=== PATIENT | male | born 1950 | race Caucasian/White ===

== ENCOUNTER 2016-08-05 00:10 | Emergency (ER) | payer MEDICARE, BC ==
[2016-08-05 00:18] VITALS: BP 130/89
[2016-08-05] MEDS ORDERED: HYDROmorphone 1 MG/ML Syringe IVPUSH ONE (01:06)
[2016-08-05] MEDS ORDERED: Ondansetron 4 MG/2 ML SDV IVPUSH ONE (01:06)
[2016-08-05] MEDS ORDERED: Sodium Chloride 0.9% 1,000 ML IV SCH (01:15)
--- NOTE | 2016-08-05 03:10 | EDM.PDOC ---
ED HPI GI/ABDOMINAL - General Chief Complaint: Abdominal Pain Stated Complaint: VOMITING/ABDOMINAL PAIN Time Seen by Provider: 08/05/16 00:35 Source of Information: Reports: Patient, RN notes reviewed History Limitations: Reports: No limitations - History of Present Illness INITIAL COMMENTS - FREE TEXT/NARRATIVE: The patient states that he developed central abdominal pain about 45 minutes [employer] , along with nausea and vomiting. He is unable to describe the character of his abdominal pain. It does not radiate. It is not modifiable. No recent fever, constipation, diarrhea, or urinary symptoms. He states that he had similar symptoms Thursday night, 07/29/2016. He states that he had a speck of blood in his vomitus. His symptoms resolved on their own. On further questioning, the patient has had similar abdominal pain, in the same location, although less intense, for approximately 5 years. He has had extensive workups, including EGDs, colonoscopies, CT scans, and MRIs, all of which were negative. He does not recall when the last CT scan of his abdomen was. The patient is on morphine 60 mg po BID and [place] 10/325 1-2 tabs po Q6h for chronic pain. - Related Data Allergies/ADRs: Allergies Allergy/AdvReac Type Severity Reaction Status Date / Time eszopiclone [From Lunesta] Allergy Rash Verified 08/05/16 00:18 tramadol HCl [From Ultram] Allergy Rash Verified 08/05/16 00:18 zolpidem tartrate Allergy Rash Verified 08/05/16 00:18 [From Ambien] Home Meds: Home Meds Hydrocodone/Acetaminophen [Hydrocodon-Acetaminophn 10-325] 1 - 2 tab PO Q6H PRN 09/28/13 [History] Morphine Sulfate [Morphine Sulfate ER] 60 mg PO BID 11/22/15 [History] Pantoprazole Sodium [Protonix] 40 mg PO DAILY 08/05/16 [History] Past Medical History HEENT History: Reports: Allergic rhinitis Other HEENT History: glasses, dentures Other Musculoskeletal History: crushing injury of finger, rheumatoid arthritis, chronic left shoulder pain, right knee pain Psychiatric History: Reports: Mood swings Other Psychiatric History: pysciatric disorder - Past Surgical History HEENT Surgical History: Reports: Tonsillectomy GI Surgical History: Reports: Cholecystectomy, Colonoscopy, EGD, Hernia, inguinal (right) Neurological Surgical History: Reports: C-Spine (ACDF), Other (see below) (Left elbow ulnar nerve transposition) Musculoskeletal Surgical History: Reports: Shoulder surgery (bilateral, arthroscopic, x 3), Other (see below) (Right hand amputation) Dermatological Surgical History: Reports: Other (see below) (Pilonidal cystectomy) Social & Family History - Family History Family Medical History: Noncontributory - Tobacco Use Smoking Status *Q: Former Smoker Tobacco Use Within Last Twelve Months: Cigarettes Years of Tobacco use: 45 Packs/Tins Daily: 2 Used Tobacco, but Quit: Yes Month Tobacco Last Used: 04/20/2016 Second Hand Smoke Exposure: No - Caffeine Use Caffeine Use: Reports: Coffee - Alcohol Use Alcohol Use History: No Days Per Week of Alcohol Use: 0 - Recreational Drug Use Recreational Drug Use: No - Living Situation & Occupation Living situation: Reports: , with spouse Occupation: employed ([employer]) ED ROS GENERAL - Review of Systems Review Of Systems: See Below Constitutional: Reports: no symptoms HEENT: Reports: No symptoms Respiratory: Reports: No Symptoms Cardiovascular: Reports: No symptoms Endocrine: Reports: no symptoms GI/Abdominal: Reports: Abdominal pain (as per the HPI) : Reports: no symptoms Musculoskeletal: Reports: no symptoms Skin: Reports: no symptoms Neurological: Reports: No Symptoms Psychiatric: Reports: No symptoms Hematologic/Lymphatic: Reports: no symptoms Immunologic: Reports: no symptoms ED EXAM, GI/ABD - Physical Exam Exam: See Below Exam Limited By: Other (Reluctant to cooperate) General Appearance: alert, WD/WN, mild distress Eyes: bilateral: EOMI Ears: normal external exam, hearing grossly normal Nose: normal inspection, no blood Throat/Mouth: Normal inspection, Normal lips, Normal voice, No airway compromise Head: atraumatic, normocephalic Neck: normal inspection, full range of motion Respiratory/Chest: no respiratory distress, lungs clear, normal breath sounds, no accessory muscle use Cardiovascular: normal peripheral pulses, regular rate, rhythm, no edema, no gallop, no JVD, no murmur, no rub GI/Abdominal: normal bowel sounds, no abnormal bruit, other (Examination limited , as the patient will not relax his abdominal muscles) (Male) Exam: Deferred Rectal (Males) Exam: Deferred Back Exam: normal inspection, full range of motion. No: CVA tenderness (L), CVA tenderness (R) Extremities: normal inspection, normal range of motion, no pedal edema, normal capillary refill Neurological: alert, oriented, normal cognition, no motor/sensory deficits Psychiatric: normal affect, flat affect Skin Exam: Warm, Dry, Intact, Normal color, No rash Course - Vital Signs Last Recorded V/S: Last Vital Signs Temp 36.3 C 08/05/16 00:15 Pulse 91 08/05/16 00:15 Resp 16 08/05/16 00:15 BP 130/89 08/05/16 00:15 Pulse Ox 95 08/05/16 00:15 - Orders/Labs/Meds Orders: Active Orders 24 hr Category Date Time Status Abdomen Pelvis w Cont [CT] Stat Exams 08/05/16 01:06 Taken Sodium Chloride 0.9% [Normal Saline] 1,000 ml Med 08/05/16 01:15 Active IV ASDIRECTED Medication Orders Sodium Chloride (Normal Saline) 1,000 mls @ 150 mls/hr IV ASDIRECTED BRINDA Last Admin: 08/05/16 01:21 Dose: 150 mls/hr Labs: Laboratory Tests 08/05/16 08/05/16 08/05/16 Range/Units 00:45 00:45 03:14 WBC 9.46 H (4.23-9.07) K/mm3 RBC 4.72 (4.63-6.08) M/mm3 Hgb 15.1 (13.7-17.5) gm/L Hct 44.8 (40.1-51.0) % MCV 94.9 H (79.0-92.2) fl MCH 32.0 (25.7-32.2) pg MCHC 33.7 (32.2-35.5) g/dl RDW Std Deviation 44.1 H (35.1-43.9) fL Plt Count 299 (163-337) K/mm3 MPV 9.5 (9.4-12.3) fl Neutrophils % (Manual) 58 (40-60) % Band Neutrophils % 1 (0-10) % Lymphocytes % (Manual) 32 (20-40) % Atypical Lymphs % 0 % Monocytes % (Manual) 6 (2-10) % Eosinophils % (Manual) 3 (0.8-7.0) % Basophils % (Manual) 0 L (0.2-1.2) Platelet Estimate Adequate Plt Morphology Comment Normal RBC Morph Comment Normal Sodium 143 (136-145) mEq/L Potassium 3.4 L (3.5-5.1) mEq/L Chloride 105 (98-107) mEq/L Carbon Dioxide 26 (21-32) mEq/L Anion Gap 15.4 H (5-15) BUN 15 (7-18) mg/dL Creatinine 0.8 (0.7-1.3) mg/dL Est Cr Clr Drug Dosing 84.28 mL/min Estimated GFR (MDRD) > 60 (>60) mL/min BUN/Creatinine Ratio 18.8 H (14-18) Glucose 96 (80-115) mg/dL Calcium 9.1 (8.5-10.1) mg/dL Total Bilirubin 0.5 (0.2-1.0) mg/dL AST 17 (15-37) U/L ALT 17 (16-63) U/L Alkaline Phosphatase 85 (46-116) U/L Total Protein 7.4 (6.4-8.2) g/dl Albumin 4.1 (3.4-5.0) g/dl Globulin 3.3 gm/dL Albumin/Globulin Ratio 1.2 (1-2) Lipase 79 (73-393) U/L Urine Color Yellow (Yellow) Urine Appearance Clear (Clear) Urine pH 6.0 (5.0-8.0) Ur Specific [place] 1.010 (1.005-1.030) Urine Protein Negative (Negative) Urine Glucose (UA) Negative (Negative) Urine Ketones Negative (Negative) Urine Occult Blood Negative (Negative) Urine Nitrite Negative (Negative) Urine Bilirubin Negative (Negative) Urine Urobilinogen 0.2 (0.2-1.0) Ur Leukocyte Esterase Negative (Negative) Urine RBC 0-5 (0-5) /hpf Urine WBC 0-5 (0-5) /hpf Ur Epithelial Cells Not seen (0-5) /hpf Urine Bacteria Rare (FEW) /hpf Urine Mucus Not seen (FEW) /hpf Meds: Medications Generic Name Dose Route Start Last Admin Trade Name Freq PRN Reason Stop Dose Admin Sodium Chloride 1,000 mls @ 150 mls/hr 08/05/16 01:15 08/05/16 01:21 Normal Saline IV 150 mls/hr ASDIRECTED BRINDA Administration Discontinued Medications Generic Name Dose Route Start Last Admin Trade Name [place] PRN Reason Stop Dose Admin Hydromorphone HCl 1 mg 08/05/16 01:06 08/05/16 01:23 Dilaudid IVPUSH 08/05/16 01:07 1 mg ONETIME ONE Administration Ondansetron HCl 4 mg 08/05/16 01:06 08/05/16 01:21 Zofran IVPUSH 08/05/16 01:07 4 mg ONETIME ONE Administration - Radiology Interpretation Free Text/Narrative:: CT of the abdomen and pelvis with oral and IV contrast is read by [facility] as "No acute findings." - Re-Assessments/Exams Free Text/Narrative Re-Assessment/Exam: 08/05/16 03:52 Test results discussed with the patient and his . Today's workup is entirely unremarkable, and does not explain the cause of the patient's pain. This did not appear to surprise the patient - he stated "I know" even before I was able to tell him his test results. He requested additional pain medication , however, with a negative workup, and the patient having pain medication at home, I do not see an indication for additional pain medication here. Departure - Departure Time of Disposition: 03:55 Disposition: Home, Self-Care 01 Condition: good Clinical Impression: Chronic generalized abdominal pain Instructions: Abdominal Pain, Adult Referrals: Imelda Mcmahan DO [Primary Care Provider] - Forms: ED Department Discharge Additional Instructions: You were seen in the emergency room for recurrent abdominal pain, along with nausea and vomiting. Workup in the ER included blood work, a urinalysis, and a CT scan of your abdomen and pelvis. Your entire workup was unremarkable, and does not explain the cause of your symptoms. We recommend you continue to take your usual medications as prescribed. Followup at your gastroenterology clinic at the next available appointment. If any other problems, please do not hesitate to return to the ER. - My Orders Last 24 Hours: My Active Orders 08/05/16 01:06 Abdomen Pelvis w Cont [CT] Stat 08/05/16 01:15 Sodium Chloride 0.9% [Normal Saline] 1,000 ml IV ASDIRECTED - Assessment/Plan Last 24 Hours: My Active Orders 08/05/16 01:06 Abdomen Pelvis w Cont [CT] Stat 08/05/16 01:15 Sodium Chloride 0.9% [Normal Saline] 1,000 ml IV ASDIRECTED
--- NOTE | 2016-08-05 08:53 | CT ---
CT abdomen and pelvis Technique: Multiple axial sections were obtained through the abdomen and pelvis. Intravenous and oral contrast was utilized. Delayed images were also obtained through the abdomen and pelvis. Comparison: Previous CT abdomen and pelvis exam of 09/16/10. Findings: Visualized lung bases show nothing acute. Small low density lesion is identified within the left lobe of the liver. This finding measures approximately 1.0 cm in size. This is noted on prior CT exam at which time it measured 1.0 cm in size. This is felt compatible with an incidental cyst. No additional abnormality is identified within the liver. Surgical clips seen from prior cholecystectomy. Adrenal glands show no nodule. Kidneys show symmetric contrast enhancement without hydronephrosis or mass. Pancreas is within normal limits. Aorta and iliac vessels show atherosclerotic calcification without aneurysmal dilatation. Appendix is seen which appears normal. No pelvic mass or adenopathy is seen. Delayed images show contrast throughout the ureters and within the bladder. No bowel dilatation is seen. No bowel wall thickening is identified. No free fluid or inflammatory change is seen. Bone window settings were reviewed which show scattered degenerative endplate spurring throughout the spine as well as degenerative apophyseal change. Impression: 1. Incidental findings as described above. 2. No acute abnormality is identified on CT study of the abdomen and pelvis. Agree with preliminary report issued by [employer] (preliminary report dictated 4:00 a.m. Central Time on 08/05/16) Diagnostic code #2
== END 2016-08-05 04:20 | disposition home or self-care (01) ==
LOC: JD.ED 00:10
DX: R10.84 Generalized abdominal pain (principal); G89.29 Other chronic pain; Z98.890 Other specified postprocedural states; Z90.49 Acquired absence of other specified parts of digestive tract; Z79.899 Other long term (current) drug therapy; Z87.891 Personal history of nicotine dependence; Z88.5 Allergy status to narcotic agent; Z88.8 Allergy status to other drugs, medicaments and biological substances
CPT/HCPCS: 36415; 74177; 80053; 81001; 83690; 85025; 96361; 96374; 96375; 99284; J1170; J2405; J7040

== ENCOUNTER 2016-08-27 19:37 | Emergency (ER) | payer MEDICARE, BC ==
[2016-08-27 19:56] VITALS: BP 128/77
[2016-08-27] MEDS ORDERED: Sodium Chloride 0.9% 1,000 ML IV ONE (20:50)
[2016-08-27] MEDS ORDERED: Ondansetron 4 MG/2 ML SDV IVPUSH ONE (20:50)
[2016-08-27] MEDS ORDERED: HYDROmorphone 1 MG/ML Syringe IVPUSH ONE (20:50)
[2016-08-27] MEDS ORDERED: Sodium Chloride 0.9% 10 ML Syringe FLUSH PRN (20:50)
--- NOTE | 2016-08-27 21:02 | EDM.PDOC ---
ED HPI GENERAL MEDICAL PROBLEM - General Chief Complaint: Abdominal Pain Stated Complaint: LOWER ABDOMINAL PAIN Time Seen by Provider: 08/27/16 20:32 Source of Information: Reports: Patient, Old records (previous ER visits ) History Limitations: Reports: No Limitations - History of Present Illness INITIAL COMMENTS - FREE TEXT/NARRATIVE: 66-year-old male presents for evaluation and treatment of abdominal pain. Reports of the abdominal pain is generalized in nature. States it started around 6 PM this evening. Reports associated symptoms of nausea and vomiting. Patient reports that his abdomen is very tender to touch. He states he has had this problem on going for about 5 years. He's currently on morphine and oxycodone for pain relief. He did take a half of a pain pill prior to arrival in the ER but did not find any pain relief. Reports that his last bowel movement was today. No melena, hematochezia, dysuria, hematuria, change in urine odor color, fevers or chills. Patient has had multiple imaging studies, EGD and colonoscopy. Has seen ALONA Stevenson. No etiology for his abdominal pain has been found. He states over the last 5 years she has lost about 70 or 80 pounds due to the pain. Location: Reports: abdomen Abdomen Pain Score (Numeric/FACES): 10 - Related Data Allergies Allergy/AdvReac Type Severity Reaction Status Date / Time eszopiclone [From Lunesta] Allergy Rash Verified 08/27/16 19:56 tramadol HCl [From Ultram] Allergy Rash Verified 08/27/16 19:56 zolpidem tartrate Allergy Rash Verified 08/27/16 19:56 [From Ambien] Home Meds: Home Meds Hydrocodone/Acetaminophen [Hydrocodon-Acetaminophn 10-325] 1 - 2 tab PO Q6H PRN 09/28/13 [History] Morphine Sulfate [Morphine Sulfate ER] 60 mg PO BID 11/22/15 [History] Pantoprazole Sodium [Protonix] 40 mg PO DAILY 08/05/16 [History] Past Medical History HEENT History: Reports: Allergic rhinitis Other HEENT History: glasses, dentures Gastrointestinal History: Reports: Hiatal hernia Other Gastrointestinal History: RLQ pain, weight loss, gastric ulcer Other Musculoskeletal History: crushing injury of finger, rheumatoid arthritis, chronic left shoulder pain, right knee pain Psychiatric History: Reports: Mood swings Other Psychiatric History: pysciatric disorder Other Hematologic History: bone marrow aspiration and biopsy - Past Surgical History HEENT Surgical History: Reports: Tonsillectomy GI Surgical History: Reports: Cholecystectomy, Colonoscopy, EGD, Hernia, inguinal Neurological Surgical History: Reports: C-Spine, Other (see below) Other Neurological Surgeries/Procedures: fusions from c2 to c6 Musculoskeletal Surgical History: Reports: Shoulder surgery Social & Family History - Family History Family Medical History: Noncontributory - Tobacco Use Smoking Status *Q: Current Some Day Smoker Years of Tobacco use: 40 Packs/Tins Daily: 0.2 Used Tobacco, but Quit: Yes Month Tobacco Last Used: 04/20/2016 Second Hand Smoke Exposure: No - Caffeine Use Caffeine Use: Reports: Coffee - Alcohol Use Days Per Week of Alcohol Use: 0 - Recreational Drug Use Recreational Drug Use: No Drug Use in Last 12 Months: No - Living Situation & Occupation Living situation: Reports: , with spouse Occupation: employed ([employer]) ED ROS GENERAL - Review of Systems Review Of Systems: See Below Constitutional: Reports: Decreased Appetite, Weight Loss. Denies: Fever, Chills GI/Abdominal: Reports: Abdominal Pain (generalized), Nausea, Vomiting. Denies: Constipation, Diarrhea, Hematochezia, Melena : Reports: No Symptoms. Denies: Dysuria, Flank Pain, Hematuria ED EXAM, GI/ABD - Physical Exam Exam: See Below Exam Limited By: No Limitations General Appearance: alert, WD/WN, mild distress Throat/Mouth: Normal Inspection, Normal Voice, No Airway Compromise Respiratory/Chest: No Respiratory Distress, Lungs Clear, Normal Breath Sounds Cardiovascular: Normal Peripheral Pulses, Regular Rate, Rhythm, No Murmur GI/Abdominal: Normal Bowel Sounds, Tenderness (generalized), Guarding Neurological: Alert, Oriented, Normal Cognition Psychiatric: Normal Affect, Normal Mood Skin Exam: Warm, Dry, Normal Color Course - Vital Signs Last Recorded V/S: Last Vital Signs Temp 37.0 C 08/27/16 19:46 Pulse 73 08/27/16 19:46 Resp 20 08/27/16 19:46 BP 128/77 08/27/16 19:46 Pulse Ox 95 08/27/16 19:46 - Orders/Labs/Meds Orders: Active Orders 24 hr Category Date Time Status Peripheral IV Care [RC] . DIRECTED Care 08/27/16 20:50 Active Peripheral IV Insertion Adult [OM.PC] Routine Oth 08/27/16 20:50 Ordered Labs: Laboratory Tests 08/27/16 08/27/16 08/27/16 Range/Units 20:10 20:10 20:10 WBC 12.96 H (4.23-9.07) K/mm3 RBC 4.60 L (4.63-6.08) M/mm3 Hgb 14.9 (13.7-17.5) gm/L Hct 44.3 (40.1-51.0) % MCV 96.3 H (79.0-92.2) fl MCH 32.4 H (25.7-32.2) pg MCHC 33.6 (32.2-35.5) g/dl RDW Std Deviation 45.9 H (35.1-43.9) fL Plt Count 296 (163-337) K/mm3 MPV 9.5 (9.4-12.3) fl Neut % (Auto) 80.0 H (34.0-67.9) % Lymph % (Auto) 12.2 L (21.8-53.1) % [place] % (Auto) 7.2 (5.3-12.2) % Eos % (Auto) 0.2 L (0.8-7.0) Baso % (Auto) 0.2 (0.1-1.2) % Neut # (Auto) 10.36 H (1.78-5.38) K/mm3 Lymph # (Auto) 1.58 (1.32-3.57) K/mm3 [place] # (Auto) 0.93 H (0.30-0.82) K/mm3 Eos # (Auto) 0.03 L (0.04-0.54) K/mm3 Baso # (Auto) 0.03 (0.01-0.08) K/mm3 PT 11.1 (8.0-13.0) SECONDS INR 1.02 APTT 26 (22-36) SECONDS Sodium 142 (136-145) mEq/L Potassium 3.8 (3.5-5.1) mEq/L Chloride 106 (98-107) mEq/L Carbon Dioxide 30 (21-32) mEq/L Anion Gap 9.8 (5-15) BUN 9 (7-18) mg/dL Creatinine 0.8 (0.7-1.3) mg/dL Est Cr Clr Drug Dosing 83.79 mL/min Estimated GFR (MDRD) > 60 (>60) mL/min BUN/Creatinine Ratio 11.3 L (14-18) Glucose 92 (80-115) mg/dL Calcium 9.0 (8.5-10.1) mg/dL Total Bilirubin 0.2 (0.2-1.0) mg/dL AST 19 (15-37) U/L ALT 18 (16-63) U/L Alkaline Phosphatase 96 (46-116) U/L C-Reactive Protein < 0.2 (<1.0) mg/dL Total Protein 7.5 (6.4-8.2) g/dl Albumin 4.0 (3.4-5.0) g/dl Globulin 3.5 gm/dL Albumin/Globulin Ratio 1.1 (1-2) Lipase 105 (73-393) U/L Urine Color (Yellow) Urine Appearance (Clear) Urine pH (5.0-8.0) Ur Specific [place] (1.005-1.030) Urine Protein (Negative) Urine Glucose (UA) (Negative) Urine Ketones (Negative) Urine Occult Blood (Negative) Urine Nitrite (Negative) Urine Bilirubin (Negative) Urine Urobilinogen (0.2-1.0) Ur Leukocyte Esterase (Negative) Urine RBC (0-5) /hpf Urine WBC (0-5) /hpf Ur Epithelial Cells Ur Squamous Epith Cells (0-5) /hpf Urine Bacteria (FEW) /hpf Urine Mucus (FEW) /hpf 08/27/16 Range/Units 21:45 WBC (4.23-9.07) K/mm3 RBC (4.63-6.08) M/mm3 Hgb (13.7-17.5) gm/L Hct (40.1-51.0) % MCV (79.0-92.2) fl MCH (25.7-32.2) pg MCHC (32.2-35.5) g/dl RDW Std Deviation (35.1-43.9) fL Plt Count (163-337) K/mm3 MPV (9.4-12.3) fl Neut % (Auto) (34.0-67.9) % Lymph % (Auto) (21.8-53.1) % [place] % (Auto) (5.3-12.2) % Eos % (Auto) (0.8-7.0) Baso % (Auto) (0.1-1.2) % Neut # (Auto) (1.78-5.38) K/mm3 Lymph # (Auto) (1.32-3.57) K/mm3 [place] # (Auto) (0.30-0.82) K/mm3 Eos # (Auto) (0.04-0.54) K/mm3 Baso # (Auto) (0.01-0.08) K/mm3 PT (8.0-13.0) SECONDS INR APTT (22-36) SECONDS Sodium (136-145) mEq/L Potassium (3.5-5.1) mEq/L Chloride (98-107) mEq/L Carbon Dioxide (21-32) mEq/L Anion Gap (5-15) BUN (7-18) mg/dL Creatinine (0.7-1.3) mg/dL Est Cr Clr Drug Dosing mL/min Estimated GFR (MDRD) (>60) mL/min BUN/Creatinine Ratio (14-18) Glucose (80-115) mg/dL Calcium (8.5-10.1) mg/dL Total Bilirubin (0.2-1.0) mg/dL AST (15-37) U/L ALT (16-63) U/L Alkaline Phosphatase (46-116) U/L C-Reactive Protein (<1.0) mg/dL Total Protein (6.4-8.2) g/dl Albumin (3.4-5.0) g/dl Globulin gm/dL Albumin/Globulin Ratio (1-2) Lipase (73-393) U/L Urine Color Yellow (Yellow) Urine Appearance Slt cloudy H (Clear) Urine pH 6.0 (5.0-8.0) Ur Specific [place] 1.025 (1.005-1.030) Urine Protein 1+ H (Negative) Urine Glucose (UA) Negative (Negative) Urine Ketones Negative (Negative) Urine Occult Blood Negative (Negative) Urine Nitrite Negative (Negative) Urine Bilirubin Negative (Negative) Urine Urobilinogen 0.2 (0.2-1.0) Ur Leukocyte Esterase Negative (Negative) Urine RBC 0-5 (0-5) /hpf Urine WBC 0-5 (0-5) /hpf Ur Epithelial Cells Not Reportable Ur Squamous Epith Cells 0-5 (0-5) /hpf Urine Bacteria Few (FEW) /hpf Urine Mucus Moderate H (FEW) /hpf Meds: Medications Discontinued Medications Generic Name Dose Route Start Last Admin Trade Name Freq PRN Reason Stop Dose Admin Hydromorphone HCl 1 mg 08/27/16 20:50 08/27/16 21:07 Dilaudid IVPUSH 08/27/16 20:51 1 mg ONETIME ONE Administration Hydromorphone HCl 0.5 mg 08/27/16 22:40 08/27/16 22:53 Dilaudid IVPUSH 08/27/16 22:41 0.5 mg ONETIME ONE Administration Sodium Chloride 1,000 mls @ 999 mls/hr 08/27/16 20:50 08/27/16 21:02 Normal Saline IV 08/27/16 21:50 999 mls/hr ONETIME ONE Administration Ondansetron HCl 4 mg 08/27/16 20:50 08/27/16 21:06 Zofran IVPUSH 08/27/16 20:51 4 mg ONETIME ONE Administration Sodium Chloride 10 ml 08/27/16 20:50 08/27/16 21:03 Saline Flush FLUSH 10 ml ASDIRECTED PRN Administration Keep Vein Open - Radiology Interpretation Free Text/Narrative:: flat and upright of the abdomen shows a non specific bowel gas pattern. No air fluid lines. Reviewed by myself and Dr. Pan. - Re-Assessments/Exams Free Text/Narrative Re-Assessment/Exam: 08/27/16 22:29 Labs have returned. It White blood cell count is mildly elevated at 12.96, hgb is 14.9 and platelets are 296. PT is 11.1, INR is 1.02. PTT is 26. Sodium is 142, potassium 3.8 chloride is 106. Anion gap is 9.8. CRP is within normal limits at less than 0.2. Lipase is within normal limits at 105. Total bili is 0.2. AST is 19, ALT is 18 alkaline phosphatase is 96. UA shows 1+ protein. Negative for nitrates, leukocytes, glucose and ketones. I reviewed the lab results with the patient. He is resting comfortably after the 1 mg of Dilaudid. We'll give an additional 0.5 mg of Dilaudid for pain relief. I discussed with him imaging. I would like to at least obtain a flat and upright of the abdomen to rule out constipation and a bowel obstruction. They're agreeable to this. I do not see the reason for any additional imaging as the patient has had multiple imaging studies over the last 5 years; no etiology for his abdominal pain discovered. I informed them we will likely not discovered the etiology for his abdominal pain tonight but can provide pain control. Him And his are agreeable to this. 08/27/16 23:13 Pain is better controlled with additional 0.5 mg of Dilaudid. I discussed The results of the xray with the patient and his . He is resting comfortably. We will discharge him home at this time. Departure - Departure Time of Disposition: 23:13 Disposition: Home, Self-Care 01 Condition: fair Clinical Impression: Abdominal pain - Discharge Information Instructions: Abdominal Pain, Adult, [id number] Referrals: Imelda Mcmahan DO [Primary Care Provider] - Forms: ED Department Discharge Additional Instructions: Continue with your current plan of care. Follow up with your primary care provider this week. I recommend you discuss a referral to another GI physician for a second opinion or possibly to [facility] for another opinion. Please return to ER should your symptoms change or worsen - My Orders Last 24 Hours: My Active Orders 08/27/16 20:50 Peripheral IV Care [RC] . DIRECTED Peripheral IV Insertion Adult [OM.PC] Routine - Assessment/Plan Last 24 Hours: My Active Orders 08/27/16 20:50 Peripheral IV Care [RC] . DIRECTED Peripheral IV Insertion Adult [OM.PC] Routine
[2016-08-27] MEDS ORDERED: HYDROmorphone 0.5 MG/0.5 ML Syringe IVPUSH ONE (22:40)
--- NOTE | 2016-08-28 10:24 | CR ---
Abdomen: Supine and upright views of the abdomen were obtained. Comparison: Previous CT abdomen and pelvis exam dated 08/05/16 is available. Scattered gas within small bowel and colon is seen which appears within normal limits. Surgical clips are noted from previous cholecystectomy within the right upper abdomen. Scattered degenerative spurring is noted within the spine. No free air is seen. Impression: 1. Incidental findings. Nothing acute is identified on two-view abdominal x-ray. Diagnostic code #2
== END 2016-08-27 23:25 | disposition home or self-care (01) ==
LOC: JD.ED 19:37
DX: R10.84 Generalized abdominal pain (principal); Z90.49 Acquired absence of other specified parts of digestive tract; Z98.890 Other specified postprocedural states; Z98.1 Arthrodesis status; Z79.899 Other long term (current) drug therapy; F17.210 Nicotine dependence, cigarettes, uncomplicated; Z88.5 Allergy status to narcotic agent; Z88.8 Allergy status to other drugs, medicaments and biological substances
CPT/HCPCS: 36415; 74020; 80053; 81001; 83690; 85025; 85610; 85730; 86140; 96361; 96374; 96375; 96376; 99284; J1170; J2405; J7040; J7050

== ENCOUNTER 2017-05-31 05:06 | Emergency (ER) | payer MEDICARE, BC ==
[2017-05-31 05:23] VITALS: BP 146/75
[2017-05-31] MEDS ORDERED: Albuterol/Ipratropium 3.0-0.5 MG/3 ML Neb Soln NEB ONE (05:43)
--- NOTE | 2017-05-31 05:47 | EDM.PDOC ---
ED HPI GENERAL MEDICAL PROBLEM - General Chief Complaint: Respiratory Problem Stated Complaint: SOB/CONGESTION Time Seen by Provider: 05/31/17 05:30 Source of Information: Reports: Patient, Family History Limitations: Reports: No Limitations - History of Present Illness INITIAL COMMENTS - FREE TEXT/NARRATIVE: This is a 66-year-old male. For the last couple of days he's been having nasal congestion and drainage and now is having increasing difficulty in breathing. He was noted this morning by his who is a nurse to have a pulse ox about 87-88% on room air. He comes to the ER for evaluation. He does describe a productive cough but he doesn't know what color the phlegm is. He denies any fever or chills he denies any nausea vomiting or diarrhea. He does have a history of COPD. The patient is not on oxygen on a regular basis and has no oxygen at home. Neck Pain Score (Numeric/FACES): 5 - Related Data Allergies Allergy/AdvReac Type Severity Reaction Status Date / Time eszopiclone [From Lunesta] Allergy Rash Verified 05/31/17 05:23 tramadol HCl [From Ultram] Allergy Rash Verified 05/31/17 05:23 zolpidem tartrate Allergy Rash Verified 05/31/17 05:23 [From Ambien] Home Meds: Home Meds Hydrocodone/Acetaminophen [Hydrocodon-Acetaminophn 10-325] 1 - 2 tab PO Q6H PRN 09/28/13 [History] Morphine Sulfate [Morphine Sulfate ER] 60 mg PO BID 11/22/15 [History] Pantoprazole Sodium [Protonix] 40 mg PO DAILY 08/05/16 [History] Albuterol [IMW: Albuterol] 2.5 mg .XX Q8H #25 ml 05/31/17 [Rx] Fluticasone/Vilanterol [Breo Ellipta 100-25 MCG Inhalation Kit] 1 puff INH DAILY 05/31/17 [History] Prednisone [IMW: predniSONE] 20 mg PO BID #10 tab 05/31/17 [Rx] Sulfamethoxazole/Trimethoprim [Septra DS] 1 tab PO BID #14 tablet 05/31/17 [Rx] Past Medical History HEENT History: Reports: Allergic Rhinitis Other HEENT History: glasses, dentures Respiratory History: Reports: COPD Gastrointestinal History: Reports: Hiatal Hernia Other Gastrointestinal History: RLQ pain, weight loss, gastric ulcer Genitourinary History: Reports: BPH, Prostate Disorder Musculoskeletal History: Reports: Amputation, Arthritis, Back Pain, Chronic, Neck Pain, Chronic Other Musculoskeletal History: crushing injury of finger, rheumatoid arthritis, chronic left shoulder pain, right knee pain Neurological History: Reports: Migraines Psychiatric History: Reports: Mood Swings Other Psychiatric History: pysciatric disorder Hematologic History: Reports: Other (See Below) Other Hematologic History: bone marrow aspiration and biopsy - Past Surgical History HEENT Surgical History: Reports: Tonsillectomy GI Surgical History: Reports: Cholecystectomy, Colonoscopy, EGD, Hernia, Inguinal Neurological Surgical History: Reports: C-Spine, Other (See Below) Musculoskeletal Surgical History: Reports: Shoulder Surgery Dermatological Surgical History: Reports: Other (See Below) Social & Family History - Family History Family Medical History: Noncontributory - Tobacco Use Smoking Status *Q: Light Tobacco Smoker Years of Tobacco use: 50 Packs/Tins Daily: 0.2 Used Tobacco, but Quit: No Month Tobacco Last Used: 04/20/2016 Second Hand Smoke Exposure: No - Caffeine Use Caffeine Use: Reports: Coffee - Alcohol Use Days Per Week of Alcohol Use: 0 - Recreational Drug Use Recreational Drug Use: No Drug Use in Last 12 Months: No - Living Situation & Occupation Living situation: Reports: , with Spouse Occupation: Employed ED ROS GENERAL - Review of Systems Review Of Systems: See Below Constitutional: Denies: Fever, Chills HEENT: Reports: Rhinitis Respiratory: Reports: Shortness of Breath, Wheezing, Cough Cardiovascular: Reports: No Symptoms Endocrine: Reports: No Symptoms GI/Abdominal: Reports: Other (Chronic abdominal pain for 5 years) : Reports: No Symptoms Musculoskeletal: Reports: No Symptoms Skin: Reports: No Symptoms Neurological: Reports: No Symptoms Psychiatric: Reports: No Symptoms Hematologic/Lymphatic: Reports: No Symptoms ED EXAM, GENERAL - Physical Exam Exam: See Below Exam Limited By: No Limitations General Appearance: Alert, WD/WN, No Apparent Distress Eye Exam: Bilateral Eye: Normal Inspection Ears: Normal External Exam, Normal Canal, Normal TMs Nose: Nasal Drainage Throat/Mouth: Normal Inspection, Normal Lips, Normal Voice, No Airway Compromise Head: Normocephalic Neck: Supple Respiratory/Chest: No Respiratory Distress, Wheezing, Other (He is noted to have inspiratory and expiratory wheezing with mild prolonged expiratory phase) Cardiovascular: Regular Rate, Rhythm, No Murmur GI/Abdominal: Soft, Other (Complains of tenderness all over the abdomen which apparently is normal for the last 5 years) Extremities: Normal Range of Motion Neurological: Alert, Oriented Psychiatric: Normal Affect, Normal Mood Skin Exam: Warm, Dry Course - Vital Signs Last Recorded V/S: Last Vital Signs Temp 97.2 F 05/31/17 05:17 Pulse 99 05/31/17 05:17 Resp 20 05/31/17 05:17 BP 146/75 H 05/31/17 05:17 Pulse Ox 94 L 05/31/17 05:45 - Orders/Labs/Meds Orders: Active Orders 24 hr Category Date Time Status RT Aerosol Therapy [RC] ASDIRECTED Care 05/31/17 05:43 Active Chest 2V [CR] Stat Exams 05/31/17 05:43 Taken INFLUENZA A+B AG SCREEN [RM] Stat Lab 05/31/17 05:20 Received Labs: Laboratory Tests 05/31/17 05/31/17 Range/Units 05:55 05:55 WBC 7.29 (4.23-9.07) K/mm3 RBC 4.18 L (4.63-6.08) M/mm3 Hgb 13.5 L (13.7-17.5) gm/L Hct 39.9 L (40.1-51.0) % MCV 95.5 H (79.0-92.2) fl MCH 32.3 H (25.7-32.2) pg MCHC 33.8 (32.2-35.5) g/dl RDW Std Deviation 42.7 (35.1-43.9) fL Plt Count 179 (163-337) K/mm3 MPV 9.2 L (9.4-12.3) fl Neut % (Auto) 72.0 H (34.0-67.9) % Lymph % (Auto) 15.4 L (21.8-53.1) % [place] % (Auto) 12.2 (5.3-12.2) % Eos % (Auto) 0.1 L (0.8-7.0) Baso % (Auto) 0.3 (0.1-1.2) % Neut # (Auto) 5.25 (1.78-5.38) K/mm3 Lymph # (Auto) 1.12 L (1.32-3.57) K/mm3 [place] # (Auto) 0.89 H (0.30-0.82) K/mm3 Eos # (Auto) 0.01 L (0.04-0.54) K/mm3 Baso # (Auto) 0.02 (0.01-0.08) K/mm3 Manual Slide Review Normal smear Sodium 137 (136-145) mEq/L Potassium 3.8 (3.5-5.1) mEq/L Chloride 99 (98-107) mEq/L Carbon Dioxide 29 (21-32) mEq/L Anion Gap 12.8 (5-15) BUN 7 (7-18) mg/dL Creatinine 0.7 (0.7-1.3) mg/dL Est Cr Clr Drug Dosing 94.39 mL/min Estimated GFR (MDRD) > 60 (>60) mL/min BUN/Creatinine Ratio 10.0 L (14-18) Glucose 101 (80-115) mg/dL Calcium 8.5 (8.5-10.1) mg/dL Total Bilirubin 0.4 (0.2-1.0) mg/dL AST 23 (15-37) U/L ALT 24 (16-63) U/L Alkaline Phosphatase 72 (46-116) U/L Total Protein 6.9 (6.4-8.2) g/dl Albumin 3.2 L (3.4-5.0) g/dl Globulin 3.7 gm/dL Albumin/Globulin Ratio 0.9 L (1-2) Meds: Medications Discontinued Medications Generic Name Dose Route Start Last Admin Trade Name José Antonioq PRN Reason Stop Dose Admin Albuterol/Ipratropium 3 ml 05/31/17 05:43 05/31/17 05:45 Duoneb 3.0-0.5 Mg/3 Ml NEB 05/31/17 05:44 3 ml ONETIME ONE Administration Albuterol/Ipratropium Confirm 05/31/17 05:48 05/31/17 05:57 Duoneb 3.0-0.5 Mg/3 Ml Administered 05/31/17 05:49 Not Given Dose 3 ml .ROUTE .K-MED ONE - Radiology Interpretation Free Text/Narrative:: Chest x-ray does not show any acute changes, he does appear to have COPD type changes. - Re-Assessments/Exams Free Text/Narrative Re-Assessment/Exam: 05/31/17 07:05 I spoke to the patient and his regarding the need for oxygen at home as well as a nebulizer treatment at home, I spoke to [facility] and they're willing to bring it to the ER for these patients to take at home for their use. I'll provide some antibiotics for the patient and some steroids and he is to follow- up with his family doctor for his exacerbation of his COPD. Departure - Departure Time of Disposition: 07:06 Disposition: Home, Self-Care 01 Condition: Fair Clinical Impression: Acute exacerbation of chronic obstructive pulmonary disease (COPD), Hypoxemia Acute bronchitis Qualifiers: Bronchitis organism: unspecified organism Qualified Code(s): J20.9 - Acute bronchitis, unspecified - Discharge Information Prescriptions: Albuterol [IMW: Albuterol] 2.5 mg .XX Q8H #25 ml Prednisone [IMW: predniSONE] 20 mg PO BID #10 tab Sulfamethoxazole/Trimethoprim [Septra DS] 1 tab PO BID #14 tablet Referrals: Florence Agarwal PA-C [Primary Care Provider] - Forms: ED Department Discharge Additional Instructions: Take the antibiotics when you get them and take the prednisone faithfully, use the oxygen faithfully until you follow up with your family doctor, the nebulizer machine with the medications use every 8 hours to help with your breathing and wheezing, gentle and careful activity over the next several days until the infection goes away and you feel better, follow-up with your family doctor later this week for recheck and return to the ER if needed - My Orders Last 24 Hours: My Active Orders 05/31/17 05:20 INFLUENZA A+B AG SCREEN [RM] Stat 05/31/17 05:43 RT Aerosol Therapy [RC] ASDIRECTED Chest 2V [CR] Stat - Assessment/Plan Last 24 Hours: My Active Orders 05/31/17 05:20 INFLUENZA A+B AG SCREEN [RM] Stat 05/31/17 05:43 RT Aerosol Therapy [RC] ASDIRECTED Chest 2V [CR] Stat
[2017-05-31] MEDS ORDERED: Albuterol/Ipratropium 3.0-0.5 MG/3 ML Neb Soln ONE (05:48)
--- NOTE | 2017-05-31 17:44 | CR ---
Chest: Two views of the chest were obtained. Comparison: Prior chest x-ray of 07/08/15. Increased lung markings are noted on both sides, worse on the right side as an interval change from prior study. Lungs are hyperinflated compatible with emphysematous change. Heart size and mediastinum are within normal limits. Degenerative spurring is noted within the spine. Impression: 1. Increased lung markings from prior study particularly on the right side compatible with moderately severe bronchitis. 2. Emphysematous change and other incidental findings. Diagnostic code #3
== END 2017-05-31 07:30 | disposition home or self-care (01) ==
LOC: JD.ED 05:06
DX: J44.1 Chronic obstructive pulmonary disease with (acute) exacerbation (principal); J20.9 Acute bronchitis, unspecified; R09.02 Hypoxemia; F17.210 Nicotine dependence, cigarettes, uncomplicated; Z88.8 Allergy status to other drugs, medicaments and biological substances; Z79.899 Other long term (current) drug therapy
CPT/HCPCS: 36415; 71046; 71046-26; 80053; 85025; 87804; 94640; 99284; 99284-25

== ENCOUNTER 2017-09-08 21:23 | Emergency (ER) | payer MEDICARE, BC ==
[2017-09-08 21:29] VITALS: BP 118/70
--- NOTE | 2017-09-08 21:57 | EDM.PDOC ---
ED HPI GENERAL MEDICAL PROBLEM - General Chief Complaint: Chest Pain Stated Complaint: CHEST PAINS Time Seen by Provider: 09/08/17 21:51 - History of Present Illness INITIAL COMMENTS - FREE TEXT/NARRATIVE: 67-year-old male presents emergency room with chest pain. 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 Patient smokes he has not completely quit yet he has cut back. He has no history of coronary artery disease. He has not had any leg pain or discomfort. This chest pain stays on the left and substernal portion of the chest anterior lateral does not radiate he has not had any associated arm pain or neck pain Left Chest Pain Score (Numeric/FACES): 10 - Related Data Allergies Allergy/AdvReac Type Severity Reaction Status Date / Time eszopiclone [From Lunesta] Allergy Rash Verified 05/31/17 05:23 tramadol HCl [From Ultram] Allergy Rash Verified 05/31/17 05:23 zolpidem tartrate Allergy Rash Verified 05/31/17 05:23 [From Ambien] Home Meds: Home Meds Hydrocodone/Acetaminophen [Hydrocodon-Acetaminophn 10-325] 1 - 2 tab PO Q6H PRN 09/28/13 [History] Morphine Sulfate [Morphine Sulfate ER] 60 mg PO BID 11/22/15 [History] Pantoprazole Sodium [Protonix] 40 mg PO DAILY 08/05/16 [History] Albuterol [IMW: Albuterol] 2.5 mg .XX Q8H #25 ml 05/31/17 [Rx] Fluticasone/Vilanterol [Breo Ellipta 100-25 MCG Inhalation Kit] 1 puff INH DAILY 05/31/17 [History] Gabapentin [Neurontin] 300 mg PO BEDTIME 09/08/17 [History] Ondansetron [Zofran ODT] 4 mg PO Q6H PRN 09/08/17 [History] Past Medical History HEENT History: Reports: Allergic Rhinitis Other HEENT History: glasses, dentures Respiratory History: Reports: COPD Gastrointestinal History: Reports: Hiatal Hernia Other Gastrointestinal History: RLQ pain, weight loss, gastric ulcer Genitourinary History: Reports: BPH, Prostate Disorder Musculoskeletal History: Reports: Amputation, Arthritis, Back Pain, Chronic, Neck Pain, Chronic Other Musculoskeletal History: crushing injury of finger, rheumatoid arthritis, chronic left shoulder pain, right knee pain Neurological History: Reports: Migraines Psychiatric History: Reports: Mood Swings Other Psychiatric History: pysciatric disorder Hematologic History: Reports: Other (See Below) Other Hematologic History: bone marrow aspiration and biopsy - Past Surgical History HEENT Surgical History: Reports: Tonsillectomy GI Surgical History: Reports: Cholecystectomy, Colonoscopy, EGD, Hernia, Inguinal Neurological Surgical History: Reports: C-Spine, Other (See Below) Musculoskeletal Surgical History: Reports: Shoulder Surgery Dermatological Surgical History: Reports: Other (See Below) Social & Family History - Family History Family Medical History: Noncontributory - Tobacco Use Smoking Status *Q: Current Every Day Smoker Years of Tobacco use: 50 Packs/Tins Daily: 0.5 - Caffeine Use Caffeine Use: Reports: Coffee - Recreational Drug Use Recreational Drug Use: No - Living Situation & Occupation Living situation: Reports: , with Spouse Occupation: Employed ED ROS GENERAL - Review of Systems Review Of Systems: See Below Constitutional: Reports: No Symptoms HEENT: Reports: No Symptoms Respiratory: Reports: Pleuritic Chest Pain, Cough (He has a chronic cough this is no worse than normal) Cardiovascular: Reports: Chest Pain. Denies: Dyspnea on Exertion, Edema, Lightheadedness, Palpitations Endocrine: Reports: No Symptoms GI/Abdominal: Reports: No Symptoms, Mucous in Stool Musculoskeletal: Reports: No Symptoms Skin: Reports: No Symptoms Neurological: Reports: No Symptoms Psychiatric: Reports: No Symptoms Hematologic/Lymphatic: Reports: No Symptoms Immunologic: Reports: No Symptoms ED EXAM, GENERAL - Physical Exam Exam: See Below Exam Limited By: No Limitations General Appearance: Alert, No Apparent Distress Head: Atraumatic, Normocephalic Neck: Normal Inspection, Supple, Non-Tender, Full Range of Motion Respiratory/Chest: No Respiratory Distress, Lungs Clear, Decreased Breath Sounds , Other (Palpation of the chest reveals some pectoralis muscle discomfort on the left side this does not necessarily mimic the pain he is having). No: Chest Non-Tender Cardiovascular: Normal Peripheral Pulses, Regular Rate, Rhythm, No Edema, No Murmur GI/Abdominal: Normal Bowel Sounds, Soft, Non-Tender Back Exam: Normal Inspection. No: CVA Tenderness (L), CVA Tenderness (R) Extremities: Normal Inspection, No Pedal Edema Neurological: Alert, Oriented, Normal Cognition EKG INTERPRETATION EKG Date: 09/08/17 Rhythm: NSR [place]: Other (Borderline axis) P-Wave: Present QRS: Normal ST-T: Normal QT: Normal EKG Interpretation Comments: Borderline EKG Course - Vital Signs Last Recorded V/S: Last Vital Signs Temp 35.9 C 09/08/17 21:28 Pulse 54 L 09/09/17 02:20 Resp 16 09/09/17 02:20 BP 118/70 09/08/17 21:28 Pulse Ox 96 09/09/17 02:20 - Orders/Labs/Meds Orders: Active Orders 24 hr Category Date Time Status EKG Documentation Completion [RC] ASDIRECTED Care 09/08/17 21:29 Active Ang Chest [CT] Stat Exams 09/08/17 23:38 Taken Chest 1V Frontal [CR] Stat Exams 09/08/17 21:58 Taken Sodium Chloride 0.9% [Normal Saline] 1,000 ml Med 09/08/17 23:45 Active IV ASDIRECTED EKG 12 Lead [EK] Stat Ther 09/08/17 21:29 Ordered Medication Orders Sodium Chloride (Normal Saline) 1,000 mls @ 150 mls/hr IV ASDIRECTED [facility] Labs: Laboratory Tests 09/08/17 09/08/17 09/08/17 Range/Units 22:05 22:05 22:05 WBC 8.64 (4.23-9.07) K/mm3 RBC 4.28 L (4.63-6.08) M/mm3 Hgb 13.8 (13.7-17.5) gm/L Hct 42.2 (40.1-51.0) % MCV 98.6 H (79.0-92.2) fl MCH 32.2 (25.7-32.2) pg MCHC 32.7 (32.2-35.5) g/dl RDW Std Deviation 46.5 H (35.1-43.9) fL Plt Count 258 (163-337) K/mm3 MPV 9.4 (9.4-12.3) fl Neutrophils % (Manual) 65 H (40-60) % Band Neutrophils % 0 (0-10) % Lymphocytes % (Manual) 33 (20-40) % Atypical Lymphs % 0 % Monocytes % (Manual) 2 (2-10) % Eosinophils % (Manual) 0 L (0.8-7.0) % Basophils % (Manual) 0 L (0.2-1.2) Platelet Estimate Adequate RBC Morph Comment Normal PT 11.4 (9.5-12.1) SECONDS INR 1.05 APTT 28 (24-31) SECONDS D-Dimer, Quantitative 0.20 (0.19-0.50) mg/L Sodium 141 (136-145) mEq/L Potassium 3.8 (3.5-5.1) mEq/L Chloride 105 (98-107) mEq/L Carbon Dioxide 28 (21-32) mEq/L Anion Gap 11.8 (5-15) BUN 13 (7-18) mg/dL Creatinine 0.7 (0.7-1.3) mg/dL Est Cr Clr Drug Dosing 94.50 mL/min Estimated GFR (MDRD) > 60 (>60) mL/min BUN/Creatinine Ratio 18.6 H (14-18) Glucose 104 (80-115) mg/dL Calcium 8.9 (8.5-10.1) mg/dL Total Bilirubin 0.4 (0.2-1.0) mg/dL AST 17 (15-37) U/L ALT 18 (16-63) U/L Alkaline Phosphatase 81 (46-116) U/L Troponin I < 0.017 (0.00-0.056) ng/mL Total Protein 6.7 (6.4-8.2) g/dl Albumin 3.4 (3.4-5.0) g/dl Globulin 3.3 gm/dL Albumin/Globulin Ratio 1.0 (1-2) 18 Range/Units 00:35 WBC (4.23-9.07) K/mm3 RBC (4.63-6.08) M/mm3 Hgb (13.7-17.5) gm/L Hct (40.1-51.0) % MCV (79.0-92.2) fl MCH (25.7-32.2) pg MCHC (32.2-35.5) g/dl RDW Std Deviation (35.1-43.9) fL Plt Count (163-337) K/mm3 MPV (9.4-12.3) fl Neutrophils % (Manual) (40-60) % Band Neutrophils % (0-10) % Lymphocytes % (Manual) (20-40) % Atypical Lymphs % % Monocytes % (Manual) (2-10) % Eosinophils % (Manual) (0.8-7.0) % Basophils % (Manual) (0.2-1.2) Platelet Estimate RBC Morph Comment PT (9.5-12.1) SECONDS INR APTT (24-31) SECONDS D-Dimer, Quantitative (0.19-0.50) mg/L Sodium (136-145) mEq/L Potassium (3.5-5.1) mEq/L Chloride (98-107) mEq/L Carbon Dioxide (21-32) mEq/L Anion Gap (5-15) BUN (7-18) mg/dL Creatinine (0.7-1.3) mg/dL Est Cr Clr Drug Dosing mL/min Estimated GFR (MDRD) (>60) mL/min BUN/Creatinine Ratio (14-18) Glucose (80-115) mg/dL Calcium (8.5-10.1) mg/dL Total Bilirubin (0.2-1.0) mg/dL AST (15-37) U/L ALT (16-63) U/L Alkaline Phosphatase (46-116) U/L Troponin I < 0.017 (0.00-0.056) ng/mL Total Protein (6.4-8.2) g/dl Albumin (3.4-5.0) g/dl Globulin gm/dL Albumin/Globulin Ratio (1-2) Meds: Medications Generic Name Dose Route Start Last Admin Trade Name Freq PRN Reason Stop Dose Admin Sodium Chloride 1,000 mls @ 150 mls/hr 09/08/17 23:45 Normal Saline IV ASDIRECTED BRINDA Discontinued Medications Generic Name Dose Route Start Last Admin Trade Name Freq PRN Reason Stop Dose Admin Fentanyl 50 mcg 09/08/17 22:31 09/08/17 22:45 Sublimaze IVPUSH 09/08/17 22:32 50 mcg ONETIME ONE Administration Sodium Chloride 500 mls @ 999 mls/hr 09/08/17 23:41 09/08/17 23:45 Normal Saline IV 09/09/17 00:11 999 mls/hr .BOLUS ONE Administration Sodium Chloride 100 mls @ 4 mls/sec 09/08/17 23:46 Normal Saline IV 09/08/17 23:47 ONETIME ONE Iopamidol 100 ml 09/08/17 23:46 Isovue-370 (76%) IVPUSH 09/08/17 23:47 ONETIME ONE Ketorolac Tromethamine 15 mg 09/08/17 23:35 09/08/17 23:45 Toradol IVPUSH 09/08/17 23:36 15 mg ONETIME ONE Administration Morphine Sulfate 4 mg 09/08/17 23:39 Morphine IV 09/08/17 23:40 ONETIME ONE - Re-Assessments/Exams Free Text/Narrative Re-Assessment/Exam: 09/09/17 02:47 The patient's chest pain seems somewhat atypical however he has risk factors age and smoking. Patient was evaluated laboratory evaluation basically unrevealing initial troponin negative second troponin negative chest x-ray showed some mild hyperinflation. Cannot clearly identify the cause of his chest discomfort went ahead and got a CT angiogram despite a negative d-dimer this showed no evidence of PE or other vascular anomaly however it did show evidence of bronchitis his cough is no worse of concern is a microlobulated 12 mm left upper lobe noncalcified pulmonary nodule that is cancer until proven otherwise. I discussed the findings of this with the patient and spouse and the understanding that urgent need to get this mass evaluated and biopsied. Departure - Departure Time of Disposition: 02:49 Disposition: Home, Self-Care 01 Clinical Impression: Atypical chest pain, Pulmonary nodule, left Referrals: Florence Agarwal PA-C [Primary Care Provider] - Forms: ED Department Discharge Additional Instructions: Return to the emergency room with any questions problems worsening symptoms. Follow-up in the clinic with your regular provider they need to arrange biopsy of this lung nodule in the left side. Also discussed cardiac stress testing. Quit smoking. Use your routine medications and pain medications as previously prescribed. - My Orders Last 24 Hours: My Active Orders 09/08/17 21:29 EKG Documentation Completion [RC] ASDIRECTED EKG 12 Lead [EK] Stat 09/08/17 21:58 Chest 1V Frontal [CR] Stat 09/08/17 23:38 Ang Chest [CT] Stat 09/08/17 23:45 Sodium Chloride 0.9% [Normal Saline] 1,000 ml IV ASDIRECTED - Assessment/Plan Last 24 Hours: My Active Orders 09/08/17 21:29 EKG Documentation Completion [RC] ASDIRECTED EKG 12 Lead [EK] Stat 09/08/17 21:58 Chest 1V Frontal [CR] Stat 09/08/17 23:38 Ang Chest [CT] Stat 09/08/17 23:45 Sodium Chloride 0.9% [Normal Saline] 1,000 ml IV ASDIRECTED
[2017-09-08] MEDS ORDERED: fentaNYL 100 MCG/2 ML SDV IVPUSH ONE (22:31)
[2017-09-08] MEDS ORDERED: Ketorolac 15 MG/ML SDV IVPUSH ONE (23:35)
[2017-09-08] MEDS ORDERED: Morphine 10 MG/ML SDV IV ONE (23:39)
[2017-09-08] MEDS ORDERED: Sodium Chloride 0.9% 500 ML IV ONE (23:41)
[2017-09-08] MEDS ORDERED: Sodium Chloride 0.9% 1,000 ML IV SCH (23:45)
[2017-09-08] MEDS ORDERED: Sodium Chloride 0.9% 100 ML IV ONE (23:46)
[2017-09-08] MEDS ORDERED: Iopamidol 755 Mg/ML 100 ML Bottle IVPUSH ONE (23:46)
--- NOTE | 2017-09-09 09:21 | CT ---
CT chest Technique: Multiple axial sections were obtained through the chest. Intravenous contrast was utilized. Study was performed as a pulmonary angiogram protocol. Comparison: Upper abdominal study is compared to prior abdominal CT exam of 08/05/16. Findings: Pulmonary arteries are well-opacified. No filling defects are seen to indicate pulmonary embolism. Atherosclerotic change is noted within the thoracic aorta. Small lymph nodes are seen within the mediastinum which measure within normal limits. No pericardial thickening is seen. Lung window setting show an irregular nodule within the left upper chest measuring about 1.2 cm. Mild emphysematous change is seen. Slight scarring is noted within both lung bases. Small nodular density is seen adjacent to the hemidiaphragm within the left base measuring 8 mm. Uncertain if this is due to nodular pleural thickening or represents an additional lung nodule. Slight scarring is felt to be present within the right upper lung. Minimal peribronchial thickening is seen within portions of the central airways. Visualized upper abdominal structures appear within normal limits. Evidence of prior cholecystectomy. Incidental note of small cyst within the left lobe of the liver which is stable. Impression: 1. 1.2 cm nodule within the left upper chest which is suspicious for lung cancer. 2. Nodule within the left lung base which may represent nodular area of pleural thickening but difficult to completely exclude additional pulmonary nodule. 3. Areas of scarring within both lungs. 4. No findings of pulmonary embolism are seen. 5. Possible bronchitis. Diagnostic code #9 I agree with preliminary report from [facility], finalized at 09/09/17, 2:06 AM Central Time
--- NOTE | 2017-09-09 09:21 | CR ---
Chest: Portable view of the chest was obtained. Comparison: Prior chest x-ray of 05/31/17. Heart size and mediastinum are normal. Nodule seen on subsequent chest CT with the left upper chest is vaguely seen on chest x-ray. Lungs otherwise are clear. Degenerative spurring is noted within the spine. Impression: 1. Nodule seen on subsequent chest CT vaguely identified within the left upper chest on chest x-ray. This cannot be seen on earlier chest x-ray which likely relates to technique. 2. Nothing acute is otherwise seen. Diagnostic code #3
== END 2017-09-09 02:57 | disposition home or self-care (01) ==
LOC: JD.ED 21:23
DX: R07.89 Other chest pain (principal); R91.1 Solitary pulmonary nodule; J44.9 Chronic obstructive pulmonary disease, unspecified; F17.210 Nicotine dependence, cigarettes, uncomplicated; Z88.5 Allergy status to narcotic agent; Z88.8 Allergy status to other drugs, medicaments and biological substances; Z79.899 Other long term (current) drug therapy
CPT/HCPCS: 36415; 71045; 71275; 80053; 84484; 85007; 85027; 85379; 85610; 85730; 93005; 96361; 96374; 96375; 99285; J1885; J3010; J7030; J7040; Q9967

== ENCOUNTER 2017-09-15 00:19 | Emergency (ER) | payer MEDICARE, BC ==
[2017-09-15 00:39] VITALS: BP 129/65
[2017-09-15] MEDS ORDERED: HYDROmorphone 0.5 MG/0.5 ML SYRINGE IVPUSH STA ×2 (01:47→04:36)
[2017-09-15] MEDS ORDERED: Ondansetron 4 MG/2 ML SDV IVPUSH ONE (01:47)
[2017-09-15] MEDS ORDERED: Levofloxacin/Dextrose 5%-Water 750 MG in Premix Bag 1 BAG IV ONE (01:48)
--- NOTE | 2017-09-15 01:50 | EDM.PDOC ---
ED HPI GENERAL MEDICAL PROBLEM - General Chief Complaint: Genitourinary Problem Stated Complaint: BIOPSY LAST WEEK PAINFUL URINATING/HIP PAIN Time Seen by Provider: 09/15/17 00:54 Source of Information: Reports: Patient, Family () History Limitations: Reports: No Limitations - History of Present Illness INITIAL COMMENTS - FREE TEXT/NARRATIVE: The patient states that he underwent a transrectal prostate biopsy per Dr. Rivera at [facility] this past , 09/10/2017. He states that he was sent home without any medications or antibiotics. The patient states that he had gross hematuria from the time of his biopsy through this past 09/13/2017, at which time the gross hematuria stopped, but he developed dysuria, urinary frequency, and urinary urgency. Presents with pain felt in his bilateral hips, extending to his upper thighs, tonight. He also reports right lower quadrant abdominal pain, although admits that he has had that for 7 years. Her in the ED, the patient is found to be febrile at 101.1 , and tachycardic at 108 bpm. The patient's PCP is Florence Agarwal. Bilateral Hip Pain Score (Numeric/FACES): 10 - Related Data Allergies Allergy/AdvReac Type Severity Reaction Status Date / Time eszopiclone [From Lunesta] Allergy Rash Verified 09/15/17 00:36 tramadol HCl [From Ultram] Allergy Rash Verified 09/15/17 00:36 zolpidem tartrate Allergy Rash Verified 09/15/17 00:36 [From Ambien] Home Meds: Home Meds Hydrocodone/Acetaminophen [Hydrocodon-Acetaminophn 10-325] 1 - 2 tab PO Q4HR PRN 09/28/13 [History] Morphine Sulfate [Morphine Sulfate ER] 60 mg PO BID 11/22/15 [History] Pantoprazole Sodium [Protonix] 40 mg PO DAILY 08/05/16 [History] Fluticasone/Vilanterol [Breo Ellipta 100-25 MCG Inhalation Kit] 1 puff INH DAILY 05/31/17 [History] Gabapentin [Neurontin] 300 - 600 mg PO BEDTIME 09/08/17 [History] Ondansetron [Zofran ODT] 4 mg PO Q4H PRN 09/08/17 [History] Albuterol [IMW: Albuterol] 2.5 mg INH QID 09/15/17 [History] Albuterol [Ventolin HFA] 2 puff INH Q4H 09/15/17 [History] Past Medical History HEENT History: Reports: Allergic Rhinitis, Impaired Vision Other HEENT History: glasses, dentures Respiratory History: Reports: COPD (occasionally takes O2) Gastrointestinal History: Reports: Gastritis Musculoskeletal History: Reports: Back Pain, Chronic, Neck Pain, Chronic, Osteoarthritis Hematologic History: Reports: Blood Transfusion(s) - Past Surgical History HEENT Surgical History: Reports: Tonsillectomy GI Surgical History: Reports: Cholecystectomy, Colonoscopy, EGD, Hernia, Inguinal (right) Male Surgical History: Reports: Prostate Biopsy (09/10/2017) Neurological Surgical History: Reports: C-Spine (ACDF x 3) Musculoskeletal Surgical History: Reports: Amputation (right hand 1979), Nerve Relocation (left ulnar n x 2), Shoulder Surgery (arthroscopic, bilateral, x 3) Social & Family History - Family History Family Medical History: Noncontributory - Tobacco Use Smoking Status *Q: Current Every Day Smoker Years of Tobacco use: 49 Packs/Tins Daily: 0.5 Packs/Tins Daily Comment: Down from 2 ppd - Caffeine Use Caffeine Use: Reports: Coffee - Alcohol Use Alcohol Use History: No - Recreational Drug Use Recreational Drug Use: No - Living Situation & Occupation Living situation: Reports: , with Spouse Occupation: Employed ([employer]) ED ROS GENERAL - Review of Systems Review Of Systems: ROS reveals no pertinent complaints other than HPI. ED EXAM, GENERAL - Physical Exam Exam: See Below Exam Limited By: No Limitations General Appearance: Alert, WD/WN, Mild Distress (Appears uncomfortable), Other ( Feels febrile) Eye Exam: Bilateral Eye: Normal Inspection Ears: Normal External Exam, Hearing Grossly Normal Nose: Normal Inspection, No Blood Throat/Mouth: Normal Inspection, Normal Lips, Normal Voice, No Airway Compromise Head: Atraumatic, Normocephalic Neck: Normal Inspection, Limited Range of Motion (painful to extend - chronic) Respiratory/Chest: No Respiratory Distress, Lungs Clear, Normal Breath Sounds, No Accessory Muscle Use Cardiovascular: Normal Peripheral Pulses, No Edema, No Gallop, No JVD, No Murmur , No Rub, Tachycardia (regular rate) Peripheral Pulses: 4+: Radial (L) GI/Abdominal: Normal Bowel Sounds, Soft, No Organomegaly, No Distention, No Abnormal Bruit, No Mass, Tender (Considerable tenderness to the right lower quadrant; less tender to the right abdomen. Mild tenderness elsewhere.) (Male) Exam: Deferred Rectal (Males) Exam: Deferred Back Exam: Normal Inspection, Full Range of Motion. No: CVA Tenderness (L), CVA Tenderness (R) Extremities: Normal Range of Motion, No Pedal Edema, Normal Capillary Refill, Other (Status post right hand amputation) Neurological: Alert, Oriented, Normal Cognition, No Motor/Sensory Deficits Psychiatric: Normal Affect Skin Exam: Warm, Dry, Intact, Normal Color, No Rash EKG INTERPRETATION EKG Date: 09/15/17 Time: 01:03 Rhythm: NSR Rate (Beats/Min): 100 [place]: Normal P-Wave: Enlarged (BARRY) QRS: Normal ST-T: Normal QT: Normal Comparison: No Change (09/08/2017) Course - Vital Signs Last Recorded V/S: Last Vital Signs Temp 38.4 C H 09/15/17 00:36 Pulse 108 H 09/15/17 00:36 Resp 16 09/15/17 00:36 BP 129/65 09/15/17 00:36 Pulse Ox 91 L 09/15/17 00:36 - Orders/Labs/Meds Orders: Active Orders 24 hr Category Date Time Status EKG Documentation Completion [RC] STAT Care 09/15/17 00:48 Active Abdomen Pelvis w Cont [CT] Stat Exams 09/15/17 01:46 Taken Chest 1V Frontal [CR] Stat Exams 09/15/17 00:48 Taken CULTURE BLOOD [BC] Stat Lab 09/15/17 01:20 Received CULTURE BLOOD [BC] Stat Lab 09/15/17 01:25 Received CULTURE URINE [RM] Stat Lab 09/15/17 00:42 Received Sodium Chloride 0.9% [Normal Saline] 1,000 ml Med 09/15/17 02:00 Active IV ASDIRECTED Sodium Chloride 0.9% [Saline Flush] Med 09/15/17 02:54 Active 10 ml FLUSH ONETIME PRN Blood Culture x2 Reflex Set [OM.PC] Stat Oth 09/15/17 00:48 Ordered Medication Orders Sodium Chloride (Normal Saline) 1,000 mls @ 150 mls/hr IV ASDIRECTED BRINDA Last Admin: 09/15/17 02:01 Dose: 150 mls/hr Sodium Chloride (Saline Flush) 10 ml FLUSH ONETIME PRN PRN Reason: Keep Vein Open Last Admin: 09/15/17 03:32 Dose: 10 ml Labs: Laboratory Tests 09/15/17 09/15/17 09/15/17 Range/Units 00:42 00:48 01:10 WBC 22.04 H (4.23-9.07) K/mm3 RBC 3.98 L (4.63-6.08) M/mm3 Hgb 12.6 L (13.7-17.5) gm/L Hct 38.7 L (40.1-51.0) % MCV 97.2 H (79.0-92.2) fl MCH 31.7 (25.7-32.2) pg MCHC 32.6 (32.2-35.5) g/dl RDW Std Deviation 43.2 (35.1-43.9) fL Plt Count 299 (163-337) K/mm3 MPV 9.1 L (9.4-12.3) fl Neutrophils % (Manual) 94 H (40-60) % Band Neutrophils % 0 (0-10) % Lymphocytes % (Manual) 2 L (20-40) % Atypical Lymphs % 0 % Monocytes % (Manual) 4 (2-10) % Eosinophils % (Manual) 0 L (0.8-7.0) % Basophils % (Manual) 0 L (0.2-1.2) Platelet Estimate Adequate Plt Morphology Comment Normal RBC Morph Comment Normal PT (9.5-12.1) SECONDS INR APTT (24-31) SECONDS D-Dimer, Quantitative (0.19-0.50) mg/L Puncture Site Rt radial ABG pH 7.47 H (7.35-7.45) ABG pCO2 34.4 L (35.0-45.0) mmHg ABG pO2 56.0 L (80.0-100.0) mmHg ABG HCO3 24.9 (22.0-26.0) meq/L ABG O2 Saturation 90.7 L (96.0-97.0) % ABG Base Excess 2.0 (-2-2.0) Elton Test Positive A-a Gradient 36 mmHg O2 Delivery Device Room air Oxygen Flow Rate 0.0 FiO2 21.00 (21.00-100.00) % Sodium (136-145) mEq/L Potassium (3.5-5.1) mEq/L Chloride (98-107) mEq/L Carbon Dioxide (21-32) mEq/L Anion Gap (5-15) BUN (7-18) mg/dL Creatinine (0.7-1.3) mg/dL Est Cr Clr Drug Dosing mL/min Estimated GFR (MDRD) (>60) mL/min BUN/Creatinine Ratio (14-18) Glucose (80-115) mg/dL Lactic Acid (0.4-2.0) mmol/L Calcium (8.5-10.1) mg/dL Magnesium (1.8-2.4) mg/dl Total Bilirubin (0.2-1.0) mg/dL AST (15-37) U/L ALT (16-63) U/L Alkaline Phosphatase (46-116) U/L Troponin I (0.00-0.056) ng/mL NT-Pro-B Natriuret Pep (0-125) pg/mL Total Protein (6.4-8.2) g/dl Albumin (3.4-5.0) g/dl Globulin gm/dL Albumin/Globulin Ratio (1-2) Urine Color Yellow (Yellow) Urine Appearance Cloudy H (Clear) Urine pH 7.5 (5.0-8.0) Ur Specific [place] 1.025 (1.005-1.030) Urine Protein 3+ H (Negative) Urine Glucose (UA) Negative (Negative) Urine Ketones Trace H (Negative) Urine Occult Blood 3+ H (Negative) Urine Nitrite Negative (Negative) Urine Bilirubin Negative (Negative) Urine Urobilinogen 1.0 (0.2-1.0) Ur Leukocyte Esterase 1+ H (Negative) Urine RBC 50-75 H (0-5) /hpf Urine WBC 50-75 H (0-5) /hpf Ur Epithelial Cells Not seen (0-5) /hpf Urine Bacteria Many H (FEW) /hpf Urine Mucus Not seen (FEW) /hpf 09/15/17 09/15/17 09/15/17 Range/Units 01:10 01:10 01:10 WBC (4.23-9.07) K/mm3 RBC (4.63-6.08) M/mm3 Hgb (13.7-17.5) gm/L Hct (40.1-51.0) % MCV (79.0-92.2) fl MCH (25.7-32.2) pg MCHC (32.2-35.5) g/dl RDW Std Deviation (35.1-43.9) fL Plt Count (163-337) K/mm3 MPV (9.4-12.3) fl Neutrophils % (Manual) (40-60) % Band Neutrophils % (0-10) % Lymphocytes % (Manual) (20-40) % Atypical Lymphs % % Monocytes % (Manual) (2-10) % Eosinophils % (Manual) (0.8-7.0) % Basophils % (Manual) (0.2-1.2) Platelet Estimate Plt Morphology Comment RBC Morph Comment PT 12.3 H (9.5-12.1) SECONDS INR 1.13 APTT 32 H (24-31) SECONDS D-Dimer, Quantitative 0.58 H (0.19-0.50) mg/L Puncture Site ABG pH (7.35-7.45) ABG pCO2 (35.0-45.0) mmHg ABG pO2 (80.0-100.0) mmHg ABG HCO3 (22.0-26.0) meq/L ABG O2 Saturation (96.0-97.0) % ABG Base Excess (-2-2.0) Elton Test A-a Gradient mmHg O2 Delivery Device Oxygen Flow Rate FiO2 (21.00-100.00) % Sodium 131 L (136-145) mEq/L Potassium 3.9 (3.5-5.1) mEq/L Chloride 96 L (98-107) mEq/L Carbon Dioxide 26 (21-32) mEq/L Anion Gap 12.9 (5-15) BUN 13 (7-18) mg/dL Creatinine 0.7 (0.7-1.3) mg/dL Est Cr Clr Drug Dosing 94.50 mL/min Estimated GFR (MDRD) > 60 (>60) mL/min BUN/Creatinine Ratio 18.6 H (14-18) Glucose 125 H (80-115) mg/dL Lactic Acid (0.4-2.0) mmol/L Calcium 8.9 (8.5-10.1) mg/dL Magnesium 1.9 (1.8-2.4) mg/dl Total Bilirubin 0.5 (0.2-1.0) mg/dL AST 19 (15-37) U/L ALT 25 (16-63) U/L Alkaline Phosphatase 85 (46-116) U/L Troponin I < 0.017 (0.00-0.056) ng/mL NT-Pro-B Natriuret Pep 173 H (0-125) pg/mL Total Protein 7.3 (6.4-8.2) g/dl Albumin 3.0 L (3.4-5.0) g/dl Globulin 4.3 gm/dL Albumin/Globulin Ratio 0.7 L (1-2) Urine Color (Yellow) Urine Appearance (Clear) Urine pH (5.0-8.0) Ur Specific [place] (1.005-1.030) Urine Protein (Negative) Urine Glucose (UA) (Negative) Urine Ketones (Negative) Urine Occult Blood (Negative) Urine Nitrite (Negative) Urine Bilirubin (Negative) Urine Urobilinogen (0.2-1.0) Ur Leukocyte Esterase (Negative) Urine RBC (0-5) /hpf Urine WBC (0-5) /hpf Ur Epithelial Cells (0-5) /hpf Urine Bacteria (FEW) /hpf Urine Mucus (FEW) /hpf 09/15/17 Range/Units 01:20 WBC (4.23-9.07) K/mm3 RBC (4.63-6.08) M/mm3 Hgb (13.7-17.5) gm/L Hct (40.1-51.0) % MCV (79.0-92.2) fl MCH (25.7-32.2) pg MCHC (32.2-35.5) g/dl RDW Std Deviation (35.1-43.9) fL Plt Count (163-337) K/mm3 MPV (9.4-12.3) fl Neutrophils % (Manual) (40-60) % Band Neutrophils % (0-10) % Lymphocytes % (Manual) (20-40) % Atypical Lymphs % % Monocytes % (Manual) (2-10) % Eosinophils % (Manual) (0.8-7.0) % Basophils % (Manual) (0.2-1.2) Platelet Estimate Plt Morphology Comment RBC Morph Comment PT (9.5-12.1) SECONDS INR APTT (24-31) SECONDS D-Dimer, Quantitative (0.19-0.50) mg/L Puncture Site ABG pH (7.35-7.45) ABG pCO2 (35.0-45.0) mmHg ABG pO2 (80.0-100.0) mmHg ABG HCO3 (22.0-26.0) meq/L ABG O2 Saturation (96.0-97.0) % ABG Base Excess (-2-2.0) Elton Test A-a Gradient mmHg O2 Delivery Device Oxygen Flow Rate FiO2 (21.00-100.00) % Sodium (136-145) mEq/L Potassium (3.5-5.1) mEq/L Chloride (98-107) mEq/L Carbon Dioxide (21-32) mEq/L Anion Gap (5-15) BUN (7-18) mg/dL Creatinine (0.7-1.3) mg/dL Est Cr Clr Drug Dosing mL/min Estimated GFR (MDRD) (>60) mL/min BUN/Creatinine Ratio (14-18) Glucose (80-115) mg/dL Lactic Acid 0.8 (0.4-2.0) mmol/L Calcium (8.5-10.1) mg/dL Magnesium (1.8-2.4) mg/dl Total Bilirubin (0.2-1.0) mg/dL AST (15-37) U/L ALT (16-63) U/L Alkaline Phosphatase (46-116) U/L Troponin I (0.00-0.056) ng/mL NT-Pro-B Natriuret Pep (0-125) pg/mL Total Protein (6.4-8.2) g/dl Albumin (3.4-5.0) g/dl Globulin gm/dL Albumin/Globulin Ratio (1-2) Urine Color (Yellow) Urine Appearance (Clear) Urine pH (5.0-8.0) Ur Specific [place] (1.005-1.030) Urine Protein (Negative) Urine Glucose (UA) (Negative) Urine Ketones (Negative) Urine Occult Blood (Negative) Urine Nitrite (Negative) Urine Bilirubin (Negative) Urine Urobilinogen (0.2-1.0) Ur Leukocyte Esterase (Negative) Urine RBC (0-5) /hpf Urine WBC (0-5) /hpf Ur Epithelial Cells (0-5) /hpf Urine Bacteria (FEW) /hpf Urine Mucus (FEW) /hpf Meds: Medications Generic Name Dose Route Start Last Admin Trade Name Freq PRN Reason Stop Dose Admin Sodium Chloride 1,000 mls @ 150 mls/hr 09/15/17 02:00 09/15/17 02:01 Normal Saline IV 150 mls/hr ASDIRECTED BRINDA Administration Sodium Chloride 10 ml 09/15/17 02:54 09/15/17 03:32 Saline Flush FLUSH 10 ml ONETIME PRN Administration Keep Vein Open Discontinued Medications Generic Name Dose Route Start Last Admin Trade Name Freq PRN Reason Stop Dose Admin Diatrizoate Meglum/Diatrizoate Sod 90 ml 09/15/17 02:53 09/15/17 03:29 Gastrografin 37% PO 09/15/17 02:54 90 ml ONETIME ONE Administration Hydromorphone HCl 1 mg 09/15/17 01:47 09/15/17 02:06 Dilaudid IVPUSH 09/15/17 01:48 1 mg ONETIME STA Administration Hydromorphone HCl 1 mg 09/15/17 04:36 09/15/17 04:41 Dilaudid IVPUSH 09/15/17 04:37 1 mg ONETIME STA Administration Levofloxacin/Dextrose 750 mg/ 150 mls @ 100 mls/hr 09/15/17 01:48 09/15/17 02 :02 Premix IV 09/15/17 03:17 100 mls/hr ONETIME ONE Administration Iopamidol 125 ml 09/15/17 03:15 09/15/17 03:30 Isovue-300 (61%) IVPUSH 09/15/17 03:16 125 ml ONETIME ONE Administration Ondansetron HCl 4 mg 09/15/17 01:47 09/15/17 02:04 Zofran IVPUSH 09/15/17 01:48 4 mg ONETIME ONE Administration - Re-Assessments/Exams Free Text/Narrative Re-Assessment/Exam: 09/15/17 01:48 On physical examination, the patient is quite tender in his right lower quadrant and right abdomen. He has a fever, and, as per the history, recently underwent a transrectal biopsy of the prostate. He has a WBC count of 22.04 - I don't have the differential, but I believe there is enough information here to warrant starting Levaquin. Blood cultures have already been drawn. His urinalysis is consistent with a UTI, although that should not cause the abdominal tenderness. I've ordered a urine culture. I've also ordered a CT scan of the abdomen and pelvis with oral and IV contrast. I've ordered IV fluid, Dilaudid, and Zofran. 09/15/17 02:47 Portable chest radiograph reviewed. Cardiac silhouette is within normal limits. No pulmonary vascular congestion. No pleural effusions seen. No focal infiltrate. No pneumothorax. An approximately 1 cm nodule is seen overlying the left scapula. Formal read per the Radiologist pending. 09/15/17 04:00 CT of the abdomen and pelvis with oral and IV contrast is read by [facility] as: 1. Findings suggest cystitis, prostatitis, seminal vesiculitis, and proctitis. No evidence of perforation or abscess. 2. Non-acute findings are described above. 09/15/17 04:25 [facility] contacted at 04:04. Case then discussed with Dr. Steve, Urologist on-call for Dr. Rivera, at 04: 07. He stated that this occurs about 1% of the time. Typically, patients are given fluoroquinolones at the time of the biopsy, and that if they then again an infection, he will be something that is resistant to the fluoroquinolone, therefore, typically, ampicillin and gentamicin are recommended. In this case, however, the patient was given Zosyn and gentamicin at the time of biopsy, therefore Levaquin is a good choice to treat his current infection. He recommends that the patient be hospitalized for 24-48 hours while receiving IV antibiotics and IV fluid. He would like the patient. Admitted to the hospitalist. Case then discussed with Dr. García, Hospitalist at [facility], at 04:21. He accepts patient for admission. We will transport the patient by ground ambulance. Chest radiograph and CT images have been pushed to [facility]. 09/15/17 04:33 The above plan was discussed with the patient and his . The patient agrees to the transfer. Departure - Departure Time of Disposition: 04:25 Disposition: DC/Tfer to Acute Hospital 02 Condition: Fair Clinical Impression: Cystitis, Prostatitis, Seminal vesiculitis, Proctitis, Hyponatremia - Discharge Information - My Orders Last 24 Hours: My Active Orders 09/15/17 00:42 CULTURE URINE [RM] Stat 09/15/17 00:48 EKG Documentation Completion [RC] STAT Chest 1V Frontal [CR] Stat Blood Culture x2 Reflex Set [OM.PC] Stat 09/15/17 01:20 CULTURE BLOOD [BC] Stat 09/15/17 01:25 CULTURE BLOOD [BC] Stat 09/15/17 01:46 Abdomen Pelvis w Cont [CT] Stat 09/15/17 02:00 Sodium Chloride 0.9% [Normal Saline] 1,000 ml IV ASDIRECTED 09/15/17 02:54 Sodium Chloride 0.9% [Saline Flush] 10 ml FLUSH ONETIME PRN - Assessment/Plan Last 24 Hours: My Active Orders 09/15/17 00:42 CULTURE URINE [RM] Stat 09/15/17 00:48 EKG Documentation Completion [RC] STAT Chest 1V Frontal [CR] Stat Blood Culture x2 Reflex Set [OM.PC] Stat 09/15/17 01:20 CULTURE BLOOD [BC] Stat 09/15/17 01:25 CULTURE BLOOD [BC] Stat 09/15/17 01:46 Abdomen Pelvis w Cont [CT] Stat 09/15/17 02:00 Sodium Chloride 0.9% [Normal Saline] 1,000 ml IV ASDIRECTED 09/15/17 02:54 Sodium Chloride 0.9% [Saline Flush] 10 ml FLUSH ONETIME PRN
[2017-09-15] MEDS ORDERED: Sodium Chloride 0.9% 1,000 ML IV SCH (02:00)
[2017-09-15] MEDS ORDERED: Diatrizoate Meglumine/Diatrizoate Sodium 37% 120 ML Bottle PO ONE (02:53)
[2017-09-15] MEDS ORDERED: Sodium Chloride 0.9% 10 ML Syringe FLUSH PRN (02:54)
[2017-09-15] MEDS ORDERED: Iopamidol 612 MG/ML 150 ML Bottle IVPUSH ONE (03:15)
--- NOTE | 2017-09-15 07:17 | CT ---
CT abdomen and pelvis Technique: Multiple axial sections were obtained from above the dome of the diaphragm inferiorly through the pubic symphysis. Intravenous and oral contrast was utilized. Delayed images were also obtained through the pelvis. Comparison: Prior abdominal and pelvic CT exam of 08/05/16. Findings: Low density lesion is seen within the left lobe of the liver compatible with a cyst measuring about 1.1 cm. Liver shows no additional abnormality. Visualized lung bases show minimal areas of scarring. Spleen appears within normal limits. Adrenal glands show no nodule. Both kidneys contain a small low-density finding most likely representing minimal cyst. Kidneys otherwise appear within normal limits. Pancreas shows no discrete abnormality. Surgical clips are seen from prior cholecystectomy. Atherosclerotic change is noted within the aorta and within the iliac vessels. No retroperitoneal adenopathy or mesenteric abnormalities are seen. No findings of appendicitis. Prostate gland appears inhomogeneous and enlarged. Hazy inflammatory change appears to be present around the seminal vesicles, rectum and prostate gland. Bladder wall is questionably thickened. Delayed images show contrast within the distal ureters and within the bladder. Bone window settings were reviewed which show scattered degenerative endplate spurring within the spine and scattered degenerative apophyseal change. Single surgical clips seen within the anterior abdominal wall near the umbilicus. Impression: 1. Findings within the prostate gland, seminal vesicles, rectum and bladder possibly due to mild inflammatory change, which may be residual from patient's recent prostate biopsy versus early infection. Please correlate if this can be differentiated clinically. 2. Other incidental findings as noted above. Diagnostic code #3 Agree with preliminary report issued by [facility] ([facility] preliminary report dictated on 09/15/17, 4:52 AM Central Time)
--- NOTE | 2017-09-15 07:17 | CR ---
Chest: Portable view of the chest is obtained. Comparison: Prior chest x-ray and chest CT of 09/08/17. Heart size and mediastinum are within normal limits. Left upper lung nodule is seen. Lungs are hyperinflated compatible with emphysematous change. Heart size and mediastinum are normal. Previous cervical spine surgery is seen. Degenerative endplate spurring is noted within the spine. Degenerative change is seen within both shoulders. Impression: 1. Left upper lung nodule which has been described on previous chest x-ray and chest CT. On prior CT exam this nodule appears suspicious for possible malignancy. 2. Emphysematous change. 3. Other incidental findings. Nothing acute is appreciated. Diagnostic code #9
== END 2017-09-15 05:33 ==
LOC: JD.ED 00:19
DX: N30.90 Cystitis, unspecified without hematuria (principal); N41.9 Inflammatory disease of prostate, unspecified; N49.0 Inflammatory disorders of seminal vesicle; K62.89 Other specified diseases of anus and rectum; E87.1 Hypo-osmolality and hyponatremia; F17.210 Nicotine dependence, cigarettes, uncomplicated; J44.9 Chronic obstructive pulmonary disease, unspecified; Z88.8 Allergy status to other drugs, medicaments and biological substances
CPT/HCPCS: 36415; 36600; 71045; 74177; 80053; 81001; 82803; 83605; 83735; 83880; 84484; 85007; 85027; 85379; 85610; 85730; 87040; 87086; 87088; 87186; 93005; 96361; 96365; 96375; 96376; 99285; J1170; J1956; J2405; J7040; J7050; Q9963; Q9967

== ENCOUNTER 2021-09-04 08:21 | Day surgery (SDC) | payer MEDICARE, BC ==
[~2021-09-04 08:21] MED LIST: Acetaminophen 325 MG Tab PO SCH; Albuterol 0.083% 2.5 MG/3 ML Neb Soln NEB ONE; EPINEPHrine 1 MG/ML SDV ONE; Lactated Ringers 1,000 ML IV SCH; Lidocaine 1%/Sod Bicarbonate in NS 8.4% 1 ML Syringe IDERM PRN; Pregabalin 25 MG Cap PO SCH; Propofol 200 MG/20 ML SDV ONE; Ropivacaine 0.5% 5 MG/ML 30 ML SDV ONE; Sodium Chloride 0.9% 10 ML Syringe FLUSH PRN; Sodium Chloride 0.9% 10 ML Syringe FLUSH SCH; oxyCODONE ER 10 MG TAB.ER PO SCH
[2021-09-04] MEDS ORDERED: Vancomycin 1 GM SDV ONE (09:04)
[2021-09-04] MEDS ORDERED: Ondansetron 4 MG/2 ML SDV ONE (09:07)
[2021-09-04] MEDS ORDERED: ceFAZolin 1 GM Vial ONE (09:07)
[2021-09-04] MEDS ORDERED: Lactated Ringers 1,000 ML ONE (09:07)
[2021-09-04] MEDS ORDERED: Lidocaine 1% 4 ML ONE (09:07)
[2021-09-04] MEDS ORDERED: fentaNYL 100 MCG/2 ML SDV ONE (09:07)
[2021-09-04] MEDS ORDERED: Ketorolac 30 MG/ML SDV ONE (09:07)
[2021-09-04] MEDS ORDERED: Propofol 200 MG/20 ML SDV ONE (09:07)
[2021-09-04] MEDS ORDERED: Ketamine 500 mg/10 ML MDV ONE (09:08)
[2021-09-04] MEDS ORDERED: Midazolam 1 MG/ML 2 ML SDV ONE (09:08)
[2021-09-04] MEDS ORDERED: HYDROmorphone 0.5 MG/0.5 ML Syringe IVPUSH PRN (10:19)
[2021-09-04] MEDS ORDERED: fentaNYL 100 MCG/2 ML SDV IVPUSH PRN (10:19)
[2021-09-04] MEDS ORDERED: ePHEDrine 50 MG/ML SDV IVPUSH PRN (10:19)
[2021-09-04] MEDS ORDERED: Midazolam 1 MG/ML 2 ML SDV IVPUSH PRN (10:19)
[2021-09-04] MEDS ORDERED: diphenhydrAMINE 50 MG/ML SDV IVPUSH PRN (10:19)
[2021-09-04] MEDS ORDERED: Albuterol 0.083% 2.5 MG/3 ML Neb Soln NEB PRN (10:19)
[2021-09-04] MEDS ORDERED: Ondansetron 4 MG/2 ML SDV IVPUSH PRN (10:19)
[2021-09-04] MEDS: Morphine 8 MG, EPINEPHrine 0.3 MG, Cefuroxime 750 MG, Ketorolac 30 MG, Sodium Chloride ... PRN ×10 (10:48→11:07)
[2021-09-04] MEDS ORDERED: ePHEDrine 50 MG/ML SDV ONE (10:57)
[2021-09-04] MEDS ORDERED: oxyCODONE 5 MG Tab PO PRN (11:54)
[2021-09-04 14:26] VITALS: BP 124/68; PULSE 76
== END 2021-09-04 15:27 | disposition home or self-care (01) ==
LOC: JD.SDS 08:21
PROVIDERS: ATTEND Orthopaedic Surgery
DX: M17.11 Unilateral primary osteoarthritis, right knee (principal); G47.30 Sleep apnea, unspecified; F41.9 Anxiety disorder, unspecified; F32.A Depression, unspecified; E03.9 Hypothyroidism, unspecified; J43.2 Centrilobular emphysema; F11.90 Opioid use, unspecified, uncomplicated; J42 Unspecified chronic bronchitis; Z79.899 Other long term (current) drug therapy; Z79.51 Long term (current) use of inhaled steroids; Z87.891 Personal history of nicotine dependence
CPT/HCPCS: 0055T; 27447; 73560; 97110; 97116; 97161; A9270; C1713; C1776; J0171; J0690; J0697; J1885; J2250; J2270; J2370; J2405; J2704; J2795; J3010; J3370; J3490; J7120; 01402; 64447; 76942

== ENCOUNTER 2021-10-13 17:22 | Emergency (ER) | payer MEDICARE, BC ==
[2021-10-13 17:39] VITALS: BP 157/88; PULSE 101
[2021-10-13] MEDS ORDERED: Ondansetron 4 MG/2 ML SDV IVPUSH ONE ×2 (18:48→20:37)
[2021-10-13] MEDS ORDERED: HYDROmorphone 1 MG/ML Syringe IVPUSH STA (18:48)
[2021-10-13] MEDS ORDERED: Sodium Chloride 0.9% 1,000 ML IV SCH (19:00)
[2021-10-13] MEDS ORDERED: Enoxaparin 80 MG/0.8 ML Syringe SUBCUT ONE (20:42)
[2021-10-13] MEDS ORDERED: HYDROmorphone 1 MG/ML Syringe IVPUSH ONE (20:42)
[2021-10-14] MEDS ORDERED: Ondansetron 4 MG/2 ML SDV IVPUSH ONE (00:21)
[2021-10-14] MEDS ORDERED: HYDROmorphone 1 MG/ML Syringe IVPUSH ONE (01:04)
[2021-10-14] MEDS ORDERED: Metoclopramide 10 MG/2 ML SDV IVPUSH STA (02:50)
[2021-10-14] MEDS ORDERED: HYDROmorphone 1 MG/ML Syringe IM ONE (02:57)
[2021-10-14] MEDS ORDERED: Metoclopramide 10 MG/2 ML SDV IM ONE (02:57)
[2021-10-14] MEDS ORDERED: Morphine 15 MG Tab.ER PO ONE (04:37)
== END 2021-10-14 07:30 | disposition home or self-care (01) ==
LOC: JD.ED 17:22
DX: A08.4 Viral intestinal infection, unspecified (principal); Z87.891 Personal history of nicotine dependence; Z28.310 Unvaccinated for COVID-19; Z88.1 Allergy status to other antibiotic agents; Z88.5 Allergy status to narcotic agent; Z20.822 Contact with and (suspected) exposure to COVID-19
CPT/HCPCS: 36415; 71046; 71275; 74177; 80053; 81001; 83690; 83735; 85007; 85027; 85379; 96361; 96372; 96374; 96375; 96376; 99284; A9270; J1170; J1650; J2405; J2765; J7030; U0002

== ENCOUNTER 2022-05-05 07:26 | Day surgery (SDC) | payer MEDICARE, BC ==
[~2022-05-05 07:26] MED LIST changes: -Albuterol 0.083% 2.5 MG/3 ML Neb Soln NEB ONE; +Bupivacaine 0.5% 30 ML SDV ONE; -EPINEPHrine 1 MG/ML SDV ONE; -Propofol 200 MG/20 ML SDV ONE; -Ropivacaine 0.5% 5 MG/ML 30 ML SDV ONE; +Tranexamic Acid 1,000 MG/10 ML Vial ONE; +Vancomycin 1 GM SDV ONE
[2022-05-05] MEDS ORDERED: fentaNYL 100 MCG/2 ML SDV ONE (07:31)
[2022-05-05] MEDS ORDERED: Midazolam 1 MG/ML 2 ML SDV ONE (07:31)
[2022-05-05] MEDS ORDERED: Propofol 200 MG/20 ML SDV ONE (07:34)
[2022-05-05] MEDS ORDERED: Rocuronium 50 MG/5 ML Vial ONE (07:34)
[2022-05-05] MEDS ORDERED: Lidocaine 1% 2 ML ONE (07:35)
[2022-05-05] MEDS ORDERED: Dexamethasone 4 MG/ML 5 ML MDV ONE (08:17)
[2022-05-05] MEDS ORDERED: Ondansetron 4 MG/2 ML SDV ONE (08:17)
[2022-05-05] MEDS ORDERED: ceFAZolin 2 GM Vial ONE (08:21)
[2022-05-05] MEDS ORDERED: HYDROmorphone 0.5 MG/0.5 ML Syringe ONE ×2 (09:05→10:10)
[2022-05-05] MEDS ORDERED: Sugammadex Sodium 200 MG/2 ML VIAL ONE (09:20)
[2022-05-05] MEDS ORDERED: Ketorolac 30 MG/ML SDV ONE (09:30)
[2022-05-05] MEDS ORDERED: Ondansetron 4 MG/2 ML SDV IVPUSH PRN (10:10)
[2022-05-05] MEDS: HYDROmorphone 0.5 MG/0.5 ML Syringe IVPUSH PRN ×2 (10:10→10:30)
[2022-05-05] MEDS: fentaNYL 100 MCG/2 ML SDV IVPUSH PRN ×2 (10:20→10:40)
[2022-05-05] MEDS ORDERED: oxyCODONE 5 MG Tab PO PRN (10:48)
[2022-05-05 14:03] VITALS: BP 140/72; PULSE 68
== END 2022-05-05 13:50 | disposition home or self-care (01) ==
LOC: JD.SDS 07:26
PROVIDERS: ATTEND Orthopaedic Surgery
DX: M19.011 Primary osteoarthritis, right shoulder (principal); F32.A Depression, unspecified; K21.9 Gastro-esophageal reflux disease without esophagitis; F41.9 Anxiety disorder, unspecified; M79.10 Myalgia, unspecified site; J43.2 Centrilobular emphysema; D64.9 Anemia, unspecified; F11.90 Opioid use, unspecified, uncomplicated; G47.30 Sleep apnea, unspecified; E03.9 Hypothyroidism, unspecified; Z88.8 Allergy status to other drugs, medicaments and biological substances; Z88.6 Allergy status to analgesic agent; Z88.1 Allergy status to other antibiotic agents; Z79.899 Other long term (current) drug therapy; Z98.890 Other specified postprocedural states; Z87.891 Personal history of nicotine dependence; Z79.82 Long term (current) use of aspirin
CPT/HCPCS: 23472; 64415; 73020; 76000; 97166; 97535; A9270; C1713; C1769; C1776; J0690; J1100; J1170; J1885; J2250; J2405; J2704; J3010; J3370; J3490; J7120; 01638

== ENCOUNTER 2023-03-26 06:03 | Emergency (ER) | payer MEDICARE, BC ==
[2023-03-26] MEDS ORDERED: Lactated Ringers 1,000 ML IV ONE (06:35)
[2023-03-26] MEDS ORDERED: Morphine 4 MG/ML Syringe IVPUSH ONE ×2 (06:35→08:46)
[2023-03-26 06:49] LABS: BASOPHILS PERCENT AUTO 0.3 % (0.0-1.0); EOSINOPHILS PERCENT AUTO 0.1 % (0.0-6.0); HEMATOCRIT 41.4 % (42.0-52.0); HEMOGLOBIN 14.3 gm/dl (14.0-18.0); IMMATURE GRAN ABSOLUTE AUTO 0.08 K/mm3 (0.00-0.05); IMMATURE GRAN PERCENT AUTO 0.6 % (0.0-0.4); LYMPHOCYTES ABSOLUTE AUTO 1.1 K/mm3 (1.0-4.8); LYMPHOCYTES PERCENT AUTO 7.8 % (24.0-44.0); MEAN CORPUSCULAR HEMOGLOBIN 31.8 pg (28.0-32.0); MEAN CORPUSCULAR HGB CONC 34.5 g/dl (32.0-36.0); MEAN PLATELET VOLUME 8.8 fl (9.4-12.4); MONOCYTES ABSOLUTE AUTO 0.3 K/mm3 (0.0-0.8); MONOCYTES PERCENT AUTO 2.4 % (0.0-8.0); NEUTROPHILS ABSOLUTE AUTO 12.1 K/mm3 (1.8-7.7); NEUTROPHILS PERCENT AUTO 88.8 % (41.0-71.0); PLATELET COUNT,PLT 315 K/mm3 (150-400); WHITE BLOOD CELL COUNT,WBC 13.58 K/mm3 (3.9-11.3)
[2023-03-26 07:13] LABS: A/G RATIO 0.9 (1-2); ALBUMIN 3.5 g/dl (3.4-5.0); ANION GAP 13.2 (5-15); BILIRUBIN TOTAL 0.3 mg/dL (0.2-1.0); BUN/CREATININE RATIO 12.2 (14-18); CALCIUM 8.9 mg/dL (8.5-10.1); CREATININE 0.9 mg/dL (0.7-1.3); EST CRCL DRUG DOSING (CG) 73.89 mL/min; POTASSIUM,K 4.2 mEq/L (3.5-5.1); PROTEIN TOTAL,TP 7.6 g/dl (6.4-8.2)
[2023-03-26] MEDS ORDERED: Morphine 2 MG/ML SYRINGE IVPUSH ONE (08:46)
[2023-03-26 08:50] LABS: APPEARANCE,URINE CLEAR (Clear); BILIRUBIN,URINE NEGATIVE (Negative); COLOR,URINE LIGHT YELLOW (Yellow); GLUCOSE,URINE NEGATIVE (Negative); KETONES,URINE NEGATIVE (Negative); LEUKOCYTE ESTERASE,URINE NEGATIVE (Negative); NITRITE,URINE NEGATIVE (Negative); OCCULT BLOOD,URINE NEGATIVE (Negative); PROTEIN,URINE NEGATIVE (Negative); UROBILINOGEN,URINE 0.2 (0.2-1.0)
[2023-03-26] MEDS ORDERED: Iopamidol 612 MG/ML 100 ML Bottle IVPUSH ONE (08:51)
[2023-03-26] MEDS ORDERED: Sodium Chloride 0.9% 10 ML Syringe FLUSH ONE (08:51)
[2023-03-26 09:39] LABS: BACTERIA,URINE FEW /hpf (FEW); EPITHELIAL CELLS,URINE 0-5 /hpf (0-5); MUCUS,URINE NOT SEEN /hpf (FEW); RBC,URINE 0-5 /hpf (0-5); WBC,URINE 0-5 /hpf (0-5)
[2023-03-26 13:28] VITALS: BP 144/89; PULSE 60
== END 2023-03-26 11:25 | disposition home or self-care (01) ==
LOC: JD.ED 06:03
DX: K85.80 Other acute pancreatitis without necrosis or infection (principal); J44.9 Chronic obstructive pulmonary disease, unspecified; E03.9 Hypothyroidism, unspecified; M19.90 Unspecified osteoarthritis, unspecified site; Z79.82 Long term (current) use of aspirin; Z79.899 Other long term (current) drug therapy; Z88.5 Allergy status to narcotic agent; Z88.8 Allergy status to other drugs, medicaments and biological substances; Z88.1 Allergy status to other antibiotic agents
CPT/HCPCS: 36415; 74177; 74177-26; 80053; 81001; 83605; 83690; 85025; 96361; 96374; 96376; 99284; 99284-25; J2270; J3490; J7120; Q9967

== ENCOUNTER 2023-06-01 14:09 | Emergency (ER) | payer BC, MEDICARE ==
[2023-06-01] MEDS: Sodium Chloride 0.9% 10 ML Syringe FLUSH PRN (15:15)
[2023-06-01 15:33] LABS: BASOPHILS ABSOLUTE AUTO 0.1 K/mm3 (0.0-0.2); BASOPHILS PERCENT AUTO 0.9 % (0.0-1.0); EOSINOPHILS ABSOLUTE AUTO 0.1 K/mm3 (0.0-0.4); EOSINOPHILS PERCENT AUTO 1.8 % (0.0-6.0); HEMATOCRIT 40.4 % (42.0-52.0); HEMOGLOBIN 13.5 gm/dl (14.0-18.0); IMMATURE GRAN PERCENT AUTO 1.3 % (0.0-0.4); LYMPHOCYTES ABSOLUTE AUTO 1.3 K/mm3 (1.0-4.8); LYMPHOCYTES PERCENT AUTO 16.2 % (24.0-44.0); MEAN CORPUSCULAR HEMOGLOBIN 31.4 pg (28.0-32.0); MEAN CORPUSCULAR HGB CONC 33.4 g/dl (32.0-36.0); MEAN PLATELET VOLUME 8.5 fl (9.4-12.4); MONOCYTES ABSOLUTE AUTO 0.7 K/mm3 (0.0-0.8); MONOCYTES PERCENT AUTO 9.3 % (0.0-8.0); NEUTROPHILS ABSOLUTE AUTO 5.5 K/mm3 (1.8-7.7); NEUTROPHILS PERCENT AUTO 70.5 % (41.0-71.0); PLATELET COUNT,PLT 414 K/mm3 (150-400); WHITE BLOOD CELL COUNT,WBC 7.73 K/mm3 (3.9-11.3)
[2023-06-01 15:52] LABS: A/G RATIO 0.7 (1-2); ALANINE AMINOTRANSFERASE,ALT 30 U/L (16-63); ALBUMIN 3.1 g/dl (3.4-5.0); ALKALINE PHOSPHATASE 138 U/L (46-116); ANION GAP 15.2 (5-15); ASPARTATE AMNIOTRANSFERASE,AST 16 U/L (15-37); BILIRUBIN TOTAL 0.2 mg/dL (0.2-1.0); BLOOD UREA NITROGEN,BUN 11 mg/dL (7-18); BUN/CREATININE RATIO 12.2 (14-18); C-REACTIVE PROTEIN 3.8 mg/dL (<1.0); CALCIUM 9.1 mg/dL (8.5-10.1); CARBON DIOXIDE,CO2 27 mEq/L (21-32); CHLORIDE,CL 102 mEq/L (98-107); CREATININE 0.9 mg/dL (0.7-1.3); EST CRCL DRUG DOSING (CG) 73.89 mL/min; ESTIMATED GFR 92 mL/min (>60); GLUCOSE RANDOM 99 mg/dL (70-99); POTASSIUM,K 4.2 mEq/L (3.5-5.1); PROTEIN TOTAL,TP 7.7 g/dl (6.4-8.2); SODIUM,NA 140 mEq/L (136-145)
[2023-06-01 16:04] LABS: TROPONIN I HIGH SENSITIVITY < 4 pg/mL (<=76)
[2023-06-01 16:18] LABS: CORONAVIRUS COVID-19 NAA NEGATIVE (NEGATIVE); INFLUENZA A NAA NEGATIVE (NEGATIVE); RESPIRATORY SYNCYTIAL VIR NAA NEGATIVE (NEGATIVE)
[2023-06-01 17:20] VITALS: BP 128/73; PULSE 86
== END 2023-06-01 17:05 | disposition home or self-care (01) ==
LOC: JD.ED 14:09
DX: S22.32XA Fracture of one rib, left side, initial encounter for closed fracture (principal); J44.9 Chronic obstructive pulmonary disease, unspecified; E03.9 Hypothyroidism, unspecified; Z79.899 Other long term (current) drug therapy; Z88.1 Allergy status to other antibiotic agents; Z88.8 Allergy status to other drugs, medicaments and biological substances; Z87.891 Personal history of nicotine dependence; W01.198A Fall on same level from slipping, tripping and stumbling with subsequent striking against other object, initial encounter
CPT/HCPCS: 0241U; 36415; 71101; 80053; 84484; 85025; 86140; 99283; J3490

== ENCOUNTER 2023-07-06 17:56 | Emergency (ER) | payer MEDICARE ==
[2023-07-06] MEDS ORDERED: Sodium Chloride 0.9% 10 ML Syringe FLUSH PRN (18:19)
[2023-07-06] MEDS: Nitroglycerin 0.4 MG Tab.SL SL PRN (19:05)
[2023-07-06 19:24] LABS: BASOPHILS PERCENT AUTO 0.3 % (0.0-1.0); EOSINOPHILS PERCENT AUTO 0.3 % (0.0-6.0); HEMATOCRIT 39.7 % (42.0-52.0); HEMOGLOBIN 13.1 gm/dl (14.0-18.0); IMMATURE GRAN ABSOLUTE AUTO 0.08 K/mm3 (0.00-0.05); IMMATURE GRAN PERCENT AUTO 0.6 % (0.0-0.4); LYMPHOCYTES ABSOLUTE AUTO 1.1 K/mm3 (1.0-4.8); LYMPHOCYTES PERCENT AUTO 8.5 % (24.0-44.0); MEAN CORPUSCULAR HEMOGLOBIN 31.9 pg (28.0-32.0); MEAN CORPUSCULAR VOLUME 96.6 fl (83.0-99.0); MEAN PLATELET VOLUME 8.9 fl (9.4-12.4); MONOCYTES PERCENT AUTO 8.2 % (0.0-8.0); NEUTROPHILS ABSOLUTE AUTO 10.4 K/mm3 (1.8-7.7); NEUTROPHILS PERCENT AUTO 82.1 % (41.0-71.0); PLATELET COUNT,PLT 318 K/mm3 (150-400); RED BLOOD CELL COUNT 4.11 M/mm3 (4.52-5.90); WHITE BLOOD CELL COUNT,WBC 12.61 K/mm3 (3.9-11.3)
[2023-07-06] MEDS: Morphine 2 MG/ML SYRINGE IVPUSH ONE (19:48)
[2023-07-06] MEDS: Ondansetron 4 MG/2 ML SDV IVPUSH ONE (19:49)
[2023-07-06 20:03] LABS: A/G RATIO 0.6 (1-2); ALANINE AMINOTRANSFERASE,ALT 24 U/L (16-63); ALBUMIN 3.2 g/dl (3.4-5.0); ALKALINE PHOSPHATASE 132 U/L (46-116); ASPARTATE AMNIOTRANSFERASE,AST 17 U/L (15-37); BILIRUBIN TOTAL 0.4 mg/dL (0.2-1.0); BLOOD UREA NITROGEN,BUN 9 mg/dL (7-18); CARBON DIOXIDE,CO2 25 mEq/L (21-32); CHLORIDE,CL 101 mEq/L (98-107); CREATININE 0.9 mg/dL (0.7-1.3); EST CRCL DRUG DOSING (CG) 73.89 mL/min; ESTIMATED GFR 92 mL/min (>60); GLUCOSE RANDOM 104 mg/dL (70-99); MAGNESIUM 2.1 mg/dL (1.8-2.4); PROTEIN TOTAL,TP 8.2 g/dl (6.4-8.2); SODIUM,NA 138 mEq/L (136-145); TROPONIN I HIGH SENSITIVITY < 4 pg/mL (<=76)
[2023-07-06 20:05] LABS: CORONAVIRUS COVID-19 NAA NEGATIVE (NEGATIVE); INFLUENZA A NAA NEGATIVE (NEGATIVE); RESPIRATORY SYNCYTIAL VIR NAA NEGATIVE (NEGATIVE)
[2023-07-06 20:24] LABS: INR 1.1; PROTHROMBIN TIME 11.7 SECONDS (9.7-12.0)
[2023-07-06 20:25] LABS: D-DIMER QUANTITATIVE 0.47 mg/L (0.19-0.50)
[2023-07-06] MEDS: Morphine 15 MG Tab.ER PO ONE (20:36)
[2023-07-06] MEDS ORDERED: Ondansetron 4 MG/2 ML SDV IVPUSH ONE (22:17)
[2023-07-06] MEDS ORDERED: Amoxicillin/Clavulanate K 875-125 MG Tab PO ONE (22:17)
[2023-07-06 23:04] VITALS: BP 125/78; PULSE 77
== END 2023-07-06 23:04 | disposition home or self-care (01) ==
LOC: JD.ED 17:56
DX: R07.89 Other chest pain (principal); J44.9 Chronic obstructive pulmonary disease, unspecified; M19.90 Unspecified osteoarthritis, unspecified site; E03.9 Hypothyroidism, unspecified; Z88.8 Allergy status to other drugs, medicaments and biological substances; Z79.899 Other long term (current) drug therapy; Z90.49 Acquired absence of other specified parts of digestive tract
CPT/HCPCS: 0241U; 36415; 71045; 71045-26; 80053; 83735; 83880; 84484; 85025; 85379; 85610; 93005; 93010; 96374; 96375; 99284; 99285-25; A9270-GY; J2270; J2405

== ENCOUNTER 2024-06-20 14:15 | Emergency (ER) | payer MEDICARE ==
[2024-06-20] MEDS: Ketorolac 30 MG/ML SDV IVPUSH ONE (14:55)
[2024-06-20] MEDS: Sodium Chloride 0.9% 1,000 ML IV ONE (14:55)
[2024-06-20] MEDS: Ondansetron 4 MG/2 ML SDV IVPUSH ONE (14:57)
[2024-06-20 18:31] VITALS: BP 142/79; PULSE 85
== END 2024-06-20 16:22 | disposition home or self-care (01) ==
LOC: JD.ED 14:15
DX: G43.909 Migraine, unspecified, not intractable, without status migrainosus (principal); J44.9 Chronic obstructive pulmonary disease, unspecified; Z90.49 Acquired absence of other specified parts of digestive tract; Z79.899 Other long term (current) drug therapy; Z79.51 Long term (current) use of inhaled steroids; Z79.2 Long term (current) use of antibiotics; Z79.891 Long term (current) use of opiate analgesic; Z88.1 Allergy status to other antibiotic agents; Z88.8 Allergy status to other drugs, medicaments and biological substances
CPT/HCPCS: 96361; 96374; 96375; 99283; J1885; J2405; J7030

== ENCOUNTER 2024-07-31 16:34 | Emergency (ER) | payer MEDICARE ==
[2024-07-31 16:49] VITALS: BP 134/85; PULSE 101
[2024-07-31] MEDS: Albuterol/Ipratropium 3.0-0.5 MG/3 ML Neb Soln NEB ONE ×2 (17:01→18:32)
[2024-07-31 17:36] LABS: BASOPHILS PERCENT AUTO 0.1 % (0.0-1.0); HEMATOCRIT 40.9 % (42.0-52.0); HEMOGLOBIN 13.5 gm/dl (14.0-18.0); IMMATURE GRAN ABSOLUTE AUTO 0.28 K/mm3 (0.00-0.05); IMMATURE GRAN PERCENT AUTO 1.9 % (0.0-0.4); LYMPHOCYTES ABSOLUTE AUTO 1.3 K/mm3 (1.0-4.8); LYMPHOCYTES PERCENT AUTO 9.2 % (24.0-44.0); MEAN CORPUSCULAR HEMOGLOBIN 31.8 pg (28.0-32.0); MEAN CORPUSCULAR VOLUME 96.2 fl (83.0-99.0); MEAN PLATELET VOLUME 8.9 fl (9.4-12.4); MONOCYTES ABSOLUTE AUTO 0.9 K/mm3 (0.0-0.8); MONOCYTES PERCENT AUTO 6.4 % (0.0-8.0); NEUTROPHILS PERCENT AUTO 82.4 % (41.0-71.0); PLATELET COUNT,PLT 358 K/mm3 (150-400); RED BLOOD CELL COUNT 4.25 M/mm3 (4.52-5.90); WHITE BLOOD CELL COUNT,WBC 14.56 K/mm3 (3.9-11.3)
[2024-07-31 17:56] LABS: A/G RATIO 0.7 (1-2); ALBUMIN 3.1 g/dl (3.4-5.0); ANION GAP 8.9 (5-15); BILIRUBIN TOTAL 0.3 mg/dL (0.2-1.0); C-REACTIVE PROTEIN 1.24 mg/dL (<0.30); EST CRCL DRUG DOSING (CG) 65.55 mL/min; POTASSIUM,K 3.9 mEq/L (3.5-5.1); PROTEIN TOTAL,TP 7.4 g/dl (6.4-8.2)
[2024-07-31] MEDS: Amoxicillin/Clavulanate K 875-125 MG Tab PO ONE (18:31)
== END 2024-07-31 18:30 | disposition home or self-care (01) ==
LOC: JD.ED 16:34
DX: J44.1 Chronic obstructive pulmonary disease with (acute) exacerbation (principal); M19.90 Unspecified osteoarthritis, unspecified site; Z88.8 Allergy status to other drugs, medicaments and biological substances; Z79.82 Long term (current) use of aspirin; Z90.49 Acquired absence of other specified parts of digestive tract
CPT/HCPCS: 36415; 71046; 80053; 85025; 86140; 94640; 99285; A9270; 99283

== ENCOUNTER 2024-11-08 09:06 | Emergency (ER) | payer MEDICARE ==
[2024-11-08] MEDS ORDERED: Sodium Chloride 0.9% 10 ML Syringe FLUSH PRN (09:39)
[2024-11-08 10:05] LABS: BASOPHILS ABSOLUTE AUTO 0.0 K/mm3 (0.0-0.2); BASOPHILS PERCENT AUTO 0.6 % (0.0-1.0); EOSINOPHILS ABSOLUTE AUTO 0.2 K/mm3 (0.0-0.4); EOSINOPHILS PERCENT AUTO 3.7 % (0.0-6.0); IMMATURE GRAN ABSOLUTE AUTO 0.02 K/mm3 (0.00-0.05); IMMATURE GRAN PERCENT AUTO 0.3 % (0.0-0.4); LYMPHOCYTES ABSOLUTE AUTO 1.7 K/mm3 (1.0-4.8); LYMPHOCYTES PERCENT AUTO 27.4 % (24.0-44.0); MEAN PLATELET VOLUME 9.1 fl (9.4-12.4); MONOCYTES ABSOLUTE AUTO 0.6 K/mm3 (0.0-0.8); MONOCYTES PERCENT AUTO 9.7 % (0.0-8.0); NEUTROPHILS ABSOLUTE AUTO 3.7 K/mm3 (1.8-7.7); NEUTROPHILS PERCENT AUTO 58.3 % (41.0-71.0); NRBC ABSOLUTE 0.00 (0.00-0.02); NRBC PERCENT 0.0 % (0.0-0.2); PLATELET COUNT,PLT 300 K/mm3 (150-400); RED BLOOD CELL COUNT 4.01 M/mm3 (4.52-5.90); WHITE BLOOD CELL COUNT,WBC 6.27 K/mm3 (3.9-11.3)
[2024-11-08 10:40] LABS: A/G RATIO 1.0 (1-2); ALANINE AMINOTRANSFERASE,ALT 28.0 U/L (16-63); ASPARTATE AMNIOTRANSFERASE,AST 21.0 U/L (15-37); BILIRUBIN TOTAL 0.2 mg/dL (0.2-1.0); BLOOD UREA NITROGEN,BUN 8.0 mg/dL (7-18); CARBON DIOXIDE,CO2 32.0 mEq/L (21-32); CHLORIDE,CL 106.0 mEq/L (98-107); CREATININE 0.8 mg/dL (0.7-1.3); EST CRCL DRUG DOSING (CG) 80.75 mL/min; ESTIMATED GFR 94.0 mL/min (>60); GLUCOSE RANDOM 92.0 mg/dL (70-99); POTASSIUM,K 3.7 mEq/L (3.5-5.1); PROTEIN TOTAL,TP 6.9 g/dl (6.4-8.2); SODIUM,NA 144.0 mEq/L (136-145); TROPONIN I HIGH SENSITIVITY 6.0 pg/mL (<=76)
[2024-11-08 12:40] VITALS: BP 135/75; PULSE 66
== END 2024-11-08 12:23 | disposition home or self-care (01) ==
LOC: JD.ED 09:06
DX: R60.0 Localized edema (principal); J44.9 Chronic obstructive pulmonary disease, unspecified; E03.9 Hypothyroidism, unspecified; Z88.8 Allergy status to other drugs, medicaments and biological substances; Z88.1 Allergy status to other antibiotic agents; Z79.899 Other long term (current) drug therapy; Z79.51 Long term (current) use of inhaled steroids; Z79.82 Long term (current) use of aspirin
CPT/HCPCS: 36415; 71046; 71046-26; 80053; 83735; 83880; 84484; 85025; 93005; 93010; 93306; 99283; 99284